=== PATIENT | male | born 1955 | race Caucasian/White ===

== ENCOUNTER 2020-02-12 18:06 | Emergency (ER) | payer SELFPAY ==
[~2020-02-12] VITALS: Ht 180.3 cm; Wt 83.9 kg
[2020-02-12 18:44] LABS: BASOPHILS ABSOLUTE AUTO 0.02 K/mm3 (0.00-0.23); BASOPHILS PERCENT AUTO 0 % (0-2); EOSINOPHILS ABSOLUTE AUTO 0.13 K/mm3 (0.00-0.68); EOSINOPHILS PERCENT AUTO 2 % (0-6); Hematocrit 45.3 % (37.0-53.0); IMMATURE GRAN ABSOLUTE AUTO 0.02 K/mm3 (0.00-0.10); IMMATURE GRAN PERCENT AUTO 0 % (0-1); LYMPHOCYTES ABSOLUTE AUTO 0.77 K/mm3 (0.84-5.20); LYMPHOCYTES PERCENT AUTO 12 % (21-46); MONOCYTES ABSOLUTE AUTO 0.54 K/mm3 (0.16-1.47); MONOCYTES PERCENT AUTO 9 % (4-13); Mean Corpuscular HGB 31.1 pg (26.0-34.0); Mean Corpuscular HGB Conc 33.1 g/dL (31.5-36.5); Mean Corpuscular Volume 94 fL (80-100); Mean Platelet Volume 9.5 fL (9.1-12.4); NEUTROPHILS PERCENT AUTO 77 % (41-73); Platelet Count 209 K/mm3 (150-400); RDW Coefficient Variation 13.2 % (11.7-14.2); RDW Standard Deviation 45.2 fL (35.1-46.3); Red Blood Cell Count 4.83 M/mm3 (4.30-5.90); White Blood Cell Count 6.38 K/mm3 (4.00-11.30)
[2020-02-12 19:06] LABS: Alanine Aminotransfer (ALT/SGP 21 U/L (12-78); Albumin, Blood 3.5 g/dL (3.4-5.0); Albumin/Globulin Ratio 1.1 (0.8-1.8); Alk Phos 136 U/L (50-136); Anion Gap 3 mmol/L (6-16); Aspartate Aminotrans (AST/SGOT 19 U/L (12-37); Bilirubin, Total 0.3 mg/dL (0.1-1.0); Blood Urea Nitrogen 15 mg/dL (8-24); Bun/Creatinine Ratio 15.6 (12.0-20.0); CO2, Blood 30 mmol/L (21-32); Calcium, Blood 8.4 mg/dL (8.5-10.1); Chloride, Blood 111 mmol/L (98-108); Creatinine, Blood 0.96 mg/dL (0.60-1.20); Ethanol (Alcohol), Blood, Med 71 mg/dL; Globulin, Blood 3.2 g/dL (2.2-4.0); Glomerular Filtration Rate >60 (60-); Glucose, Blood 86 mg/dL (70-99); Potassium, Blood 3.5 mmol/L (3.5-5.5); Sodium, Blood 144 mmol/L (136-145); Total Protein, Blood 6.7 g/dL (6.4-8.2)
[2020-02-12] MEDS ORDERED: Aspirin EC81 MG PO (20:11)
== END 2020-02-12 20:49 | disposition home or self-care (01) ==
LOC: ER 18:06
PROVIDERS: Emergency Medicine
DX: G45.9 Transient cerebral ischemic attack, unspecified (principal); F10.129 Alcohol abuse with intoxication, unspecified; Z79.82 Long term (current) use of aspirin
CPT/HCPCS: 70450; 80053; 85025; 93005; 93010; 99284-25; G0480

== ENCOUNTER → 2020-09-03 | Outpatient (CLI) | payer SELFPAY ==
[~2020-09-03] MED LIST: Aspirin EC81 MG PO
[2020-09-03 18:07] LABS: International Normalized Ratio 0.92
[2020-09-03 18:13] LABS: BASOPHILS ABSOLUTE AUTO 0.02 K/mm3 (0.00-0.23); BASOPHILS PERCENT AUTO 0 % (0-2); EOSINOPHILS ABSOLUTE AUTO 0.13 K/mm3 (0.00-0.68); EOSINOPHILS PERCENT AUTO 2 % (0-6); Hematocrit 46.9 % (37.0-53.0); Hemoglobin 15.8 g/dL (13.5-17.5); IMMATURE GRAN ABSOLUTE AUTO 0.02 K/mm3 (0.00-0.10); IMMATURE GRAN PERCENT AUTO 0 % (0-1); LYMPHOCYTES ABSOLUTE AUTO 1.38 K/mm3 (0.84-5.20); LYMPHOCYTES PERCENT AUTO 24 % (21-46); MONOCYTES ABSOLUTE AUTO 0.77 K/mm3 (0.16-1.47); MONOCYTES PERCENT AUTO 13 % (4-13); Mean Corpuscular HGB 31.3 pg (26.0-34.0); Mean Corpuscular HGB Conc 33.7 g/dL (31.5-36.5); Mean Corpuscular Volume 93 fL (80-100); Mean Platelet Volume 11.1 fL (9.1-12.4); NEUTROPHILS ABSOLUTE AUTO 3.53 K/mm3 (1.96-9.15); NEUTROPHILS PERCENT AUTO 60 % (41-73); Platelet Count 201 K/mm3 (150-400); RDW Coefficient Variation 13.7 % (11.7-14.2); RDW Standard Deviation 47.4 fL (35.1-46.3); Red Blood Cell Count 5.04 M/mm3 (4.30-5.90); White Blood Cell Count 5.85 K/mm3 (4.00-11.30)
[2020-09-03 18:25] LABS: Alanine Aminotransfer (ALT/SGP 33 U/L (12-78); Albumin, Blood 3.9 g/dL (3.4-5.0); Albumin/Globulin Ratio 1.1 (0.8-1.8); Alk Phos 148 U/L (50-136); Anion Gap 6 mmol/L (6-16); Aspartate Aminotrans (AST/SGOT 24 U/L (12-37); Bilirubin, Total 0.3 mg/dL (0.1-1.0); Blood Urea Nitrogen 21 mg/dL (8-24); Bun/Creatinine Ratio 25.3 (12.0-20.0); CHOL/HDL RATIO 2.4; CO2, Blood 27 mmol/L (21-32); Calcium, Blood 8.8 mg/dL (8.5-10.1); Chloride, Blood 109 mmol/L (98-108); Cholesterol 168 mg/dL (50-200); Creatinine, Blood 0.83 mg/dL (0.60-1.20); Globulin, Blood 3.7 g/dL (2.2-4.0); Glomerular Filtration Rate >60 (60-); Glucose, Blood 72 mg/dL (70-99); HDL Cholesterol 69 mg/dL (>39); LDL/HDL RATIO 1.1; Low Density Lipoprotein Chol 77 mg/dL (0-110); Potassium, Blood 4.1 mmol/L (3.5-5.5); Sodium, Blood 142 mmol/L (136-145); Total Protein, Blood 7.6 g/dL (6.4-8.2); Triglycerides 111 mg/dL (30-160); Very Low Density Lipoprot Chol 22 mg/dL (6-32)
== END ==
LOC: LAB SHORT 16:45
PROVIDERS: Nurse Practitioner Family
DX: Z00.00 Encounter for general adult medical examination without abnormal findings (principal); Z12.5 Encounter for screening for malignant neoplasm of prostate; E55.9 Vitamin D deficiency, unspecified; Z86.73 Personal history of transient ischemic attack (TIA), and cerebral infarction without residual deficits
CPT/HCPCS: 80053; 80061; 82306; 84443; 85025; 85610; G0103

== ENCOUNTER 2020-11-17 21:18 | Inpatient (IN) | payer MEDICARE ==
[~2020-11-17] VITALS: Ht 175.3 cm; Wt 76.7 kg
[2020-11-17 21:47] LABS: BASOPHILS ABSOLUTE AUTO 0.01 K/mm3 (0.00-0.23); BASOPHILS PERCENT AUTO 0 % (0-2); EOSINOPHILS ABSOLUTE AUTO 0.13 K/mm3 (0.00-0.68); EOSINOPHILS PERCENT AUTO 2 % (0-6); Hematocrit 40.6 % (37.0-53.0); Hemoglobin 13.9 g/dL (13.5-17.5); IMMATURE GRAN ABSOLUTE AUTO 0.03 K/mm3 (0.00-0.10); IMMATURE GRAN PERCENT AUTO 0 % (0-1); LYMPHOCYTES ABSOLUTE AUTO 1.01 K/mm3 (0.84-5.20); LYMPHOCYTES PERCENT AUTO 11 % (21-46); MONOCYTES ABSOLUTE AUTO 1.65 K/mm3 (0.16-1.47); MONOCYTES PERCENT AUTO 19 % (4-13); Mean Corpuscular HGB 31.7 pg (26.0-34.0); Mean Corpuscular HGB Conc 34.2 g/dL (31.5-36.5); Mean Corpuscular Volume 93 fL (80-100); Mean Platelet Volume 10.4 fL (9.1-12.4); NEUTROPHILS ABSOLUTE AUTO 6.04 K/mm3 (1.96-9.15); NEUTROPHILS PERCENT AUTO 68 % (41-73); Platelet Count 165 K/mm3 (150-400); RDW Coefficient Variation 13.2 % (11.7-14.2); RDW Standard Deviation 45.2 fL (35.1-46.3); Red Blood Cell Count 4.39 M/mm3 (4.30-5.90); White Blood Cell Count 8.87 K/mm3 (4.00-11.30)
[2020-11-17 22:00] LABS: Alanine Aminotransfer (ALT/SGP 51 U/L (12-78); Albumin, Blood 2.9 g/dL (3.4-5.0); Albumin/Globulin Ratio 0.8 (0.8-1.8); Alk Phos 94 U/L (50-136); Anion Gap 4 mmol/L (6-16); Aspartate Aminotrans (AST/SGOT 37 U/L (12-37); Bilirubin, Total 0.3 mg/dL (0.1-1.0); Blood Urea Nitrogen 20 mg/dL (8-24); Bun/Creatinine Ratio 22.9 (12.0-20.0); CO2, Blood 31 mmol/L (21-32); Calcium, Blood 8.5 mg/dL (8.5-10.1); Chloride, Blood 108 mmol/L (98-108); Creatinine, Blood 0.87 mg/dL (0.60-1.20); Globulin, Blood 3.5 g/dL (2.2-4.0); Glomerular Filtration Rate >60 (60-); Glucose, Blood 90 mg/dL (70-99); Potassium, Blood 3.9 mmol/L (3.5-5.5); Sodium, Blood 143 mmol/L (136-145); Total Protein, Blood 6.4 g/dL (6.4-8.2)
[2020-11-17 22:30] LABS: Prothrombin Time Results 10.8 Sec (9.7-11.5)
[2020-11-17 23:27] LABS: Ethanol (Alcohol), Blood, Med <3 mg/dL
[2020-11-18 00:36] LABS: SARS-Cov-2 (COVID-19) PCR, MMC NEGATIVE (NEGATIVE)
[2020-11-18 06:23] LABS: CHOL/HDL RATIO 3.9; Cholesterol 120 mg/dL (50-200); HDL Cholesterol 31 mg/dL (>39); LDL/HDL RATIO 2.4; Low Density Lipoprotein Chol 75 mg/dL (0-110); Triglycerides 71 mg/dL (30-160); Very Low Density Lipoprot Chol 14 mg/dL (6-32)
--- NOTE | 2020-11-18 18:38 | NUR ---
PATIENT A/OX3, UP WITH GB, FWW AND 1 ASSIST. TOLERATING DYSPHAGIA DIET, TAKES PILLS CRUSHED IN APPLESAUCE. ST/OT/PT WORKING WITH PATIENT. FALL PRECAUTIONS IN PLACE. SR ON TELE, DENIES ANY CP. LUNGS CLEAR/DIM, ON RA. PATIENT ATTEMPTED TO GET OOB UNASSISTED THIS EVANING AND WAS CLOSE TO FALLING. 2 STAFF MEMBERS WERE ABLE TO LOWER HIM SAFELY TO THE GROUND WITHOUT ANY INJURY. PT/OT HELPERS ON THE FLOOR ASSISTED PATIENT BACK TO BED. BED ALARM SET AND PATIENT REMINDED TO CALL FOR ASSISTANCE.
--- NOTE | 2020-11-19 03:31 | NUR ---
patient alert and oriented to person. confused to situation and time.bed alarm on due to multiple attempts of getting out of bed. extremely weak when standing. 2 person assitance out of bed. urinal at bedside, but has been mostly incontient. tolerating nectar thickend liquids well overnight. denies pain. denies nausea.
--- NOTE | 2020-11-19 06:43 | NUR ---
NOTIFIED BY TELE THAT PT HAD A 10 BEAT RUN OF VTACH. PT ASYMPTOMATIC. SR IN THE 70'S OTHERWISE. CALL MADE TO DR. LE. WAITING FOR CALL BACK. WILL NOTIFY DAY RN.
--- NOTE | 2020-11-19 16:49 | NUR ---
Shift Summary A/O, pleasant and cooperative. Difficultly communicating with staff d/t stroke and dysphasia. Consult called to Dr. Florence. Called and updated Emy () @ [phone] RE upcoming procedure (peg-tube placement) per Dr. Florence's request. Emy also provided an alternate number [phone] and will be awaiting Dr. Florence's call tomorrow prior to procedure. Patient had modified barium swallow study today (see results). Otherwise, no complaints of pain, nausea, vomiting, diarrhea. 2p max assist for transfer. Bed alarm on for safety. WCTM.
--- NOTE | 2020-11-19 18:32 | NUR ---
NS @ [address] MELISSA NUNN NO IV FLUIDS RUNNING AND PATIENT NPO. PATIENT C/O DEHYDRATION. T.O. FOR 1 BAG NS @ 75.
--- NOTE | 2020-11-20 04:26 | NUR ---
No acute changes in patient's condition overnight.seems oriented however, has expressive aphasia; no visible signs of any distress present. bed alarm on for safety. anticipate peg placement today.
--- NOTE | 2020-11-20 09:30 | NUR ---
PT PLEASANT COOP VERY DIFFICULT TO UNDERSTAND. BARELY TALKING. H/R REG, NO MURMER NOTED. PER TELE NSR 84 WITH PAC'S. LUNGS CLEAR, RESP EASY, UNLABORED. ON R.A. PENDING PEG TUBE THIS AM. BED IN LOW POSITION, CAMELIA LITE IN REACH, BED ALARM ON FOR SAFETY
--- NOTE | 2020-11-20 12:55 | NUR ---
TO PROCEDKURE AT 1255
--- NOTE | 2020-11-20 13:11 | NUR ---
HERNESTO FROM SURGERY CALLED. PT ON PLAVIX YEST. PER DR NEEDS TO BE OFF 5 DAYS. PT TO BE RETURNED TO ROOM.
--- NOTE | 2020-11-20 18:48 | NUR ---
PT NOT ABLE TO GET THE PEG TUBE PLACED TODAY. ORDERS WERE MADE FOR NG TUBE. PLACED BY ENAMEL DIPPER. VERIFIED BY DR MUNOZ OKAY TO USE. STARTED THIS NICHOLE AT PER PROTOCOL RATES. PT RESTING, HOB 30%. BED IN LOW POSITION, CALLLITE IN [facility], CALLS APPROP
--- NOTE | 2020-11-21 02:31 | NUR ---
TUBE FEEDING IS INCREASED TO 35ML. 0ML RESIDUAL. TOLERATING FEEDINGS FINE. NO COMPLAINTS OR ACUTE CONCERNS.
--- NOTE | 2020-11-21 04:05 | NUR ---
PATIENT HAS NEWLY INSERTED DOBHOFF FEEDING TUBE. PEG TUBE WAS ATTEMPTED AND UNABLE TO INSERT BC HE HAD RECENT PLAXIX. JEVITY 1.5 RUNNING AT 25ML/HR AND THEN INCREASED TO 35ML/HR AT 0200. 0ML RESIDUAL. TOLERATING WELL. NO SIGNIFICANT EVENTS OR OTHER CHANGES IN CONDITION OVERNIGHT.
[2020-11-21 07:08] LABS: Anion Gap 6 mmol/L (6-16); Blood Urea Nitrogen 27 mg/dL (8-24); CO2, Blood 26 mmol/L (21-32); Calcium, Blood 8.5 mg/dL (8.5-10.1); Chloride, Blood 111 mmol/L (98-108); Creatinine, Blood 0.75 mg/dL (0.60-1.20); Glomerular Filtration Rate >60 (60-); Glucose, Blood 132 mg/dL (70-99); Phosphorus, Blood 2.5 mg/dL (2.5-4.9); Potassium, Blood 3.7 mmol/L (3.5-5.5); Sodium, Blood 143 mmol/L (136-145)
--- NOTE | 2020-11-21 10:00 | NUR ---
pt pleasant today. able to make needs known. left side is weak. facial droop. daubhoff is functioning. adjusting rate to 45 . pt drew well. denies pain. h/r reg, no murmer noted. per tele nsr at 68-70. lungs clear, resp easy, unlabored. pt able to stand to urinate with 1 heavy asst. leans to left. but with fww is working. bed in low position, call lite in reach, calls approp
--- NOTE | 2020-11-21 19:51 | NUR ---
PT QUITE PLEASNT TODAY. NEW FEEDING BAGS PLACED THIS NICHOLE. PUMP CLEARED. NO NEW CONERNS NOTED. NG IN PLACE AND FEEDING IN PROGRESS. BED IN LOW POSITION, CALLLITE IN REACH, CALLS APPROP
--- NOTE | 2020-11-22 04:06 | NUR ---
NO ACUTE CHANGES IN CONDITION OR ANY SIGNIFICANT EVENTS NOTED OVERNIGHT. PATIENT IS ALERT AND ORIENTED X3. A WRITING BOARD AND MARKER WAS GIVEN TO HIM ON DAY SHIFT TO HELP HIM TO BE ABLE TO COMMUNICATE BETTER WITH THE STAFF. TUBE FEEDING IS JEVITY 1.5, INCREASED TO 55ML/HR AT 2200. THE GOAL RATE, 60ML/HR WILL BE ACHIEVED AT THE END OF THIS SHIFT IF HE IS TOLERATING WELL, WITH LIMITED RESIDUAL. RESIDUAL CHECKED AT 2200 AND WAS 15ML. RESIDUAL WAS RETURNED. 45ML OF FLUSH GIVEN Q1H VIA PUMP. DENIES PAIN. DENIES NAUSEA. DOBHOFF STILL INTACT, IN PROPER POSITION, AUSCALTED.
[2020-11-22 05:42] LABS: Anion Gap 5 mmol/L (6-16); Blood Urea Nitrogen 24 mg/dL (8-24); Bun/Creatinine Ratio 29.4 (12.0-20.0); CO2, Blood 28 mmol/L (21-32); Calcium, Blood 8.3 mg/dL (8.5-10.1); Chloride, Blood 110 mmol/L (98-108); Creatinine, Blood 0.82 mg/dL (0.60-1.20); Glomerular Filtration Rate >60 (60-); Glucose, Blood 132 mg/dL (70-99); Phosphorus, Blood 3.2 mg/dL (2.5-4.9); Potassium, Blood 3.8 mmol/L (3.5-5.5); Sodium, Blood 143 mmol/L (136-145)
--- NOTE | 2020-11-22 06:36 | NUR ---
PATIENT PULLED OUT DOBHOFF TUBE. TIP OF TUBE STILL IN NASAL. TUBE FEEDING WERE STOPPED. MEDICAL TECHNOLOGIST SHIVA CAME TO THE ROOM TO SEE IF WE COULD ADVANCE IT AND ORDER ANOTHER X RAY TO CONFIRM PLACEMENT. PATIENT IS REFUSING TO HAVE TUBE REPLACED. HE IS VERY AGITATED. HE DOES NOT WANT TUBE. WILL NOTIFY MD IN AM REGARDING THIS EVENT.
--- NOTE | 2020-11-22 13:30 | NUR ---
wanted to know where he was and where he is going, wrote on board UV and that he needed a peg tube, explained what necessary for peg tube and transfre, pt stated/indicated understanding and agreement, after all done he once again asked why he was here and rolled his eyes when reason riterated but indicated it was frusteration with the facts not a lack of understanding
--- NOTE | 2020-11-22 19:42 | NUR ---
iv wrapped well to protect from being pulled, call light in reach, still frusterated with asphasia, compliant, noc nurse will start clinamix when it arrives from pharmacy, gave order for regular clinamix 50, report shared with noc nurse
[2020-11-23 05:32] LABS: Anion Gap 4 mmol/L (6-16); Blood Urea Nitrogen 28 mg/dL (8-24); Bun/Creatinine Ratio 34.6 (12.0-20.0); CO2, Blood 26 mmol/L (21-32); Calcium, Blood 8.6 mg/dL (8.5-10.1); Chloride, Blood 113 mmol/L (98-108); Creatinine, Blood 0.81 mg/dL (0.60-1.20); Glomerular Filtration Rate >60 (60-); Glucose, Blood 109 mg/dL (70-99); Phosphorus, Blood 3.1 mg/dL (2.5-4.9); Sodium, Blood 143 mmol/L (136-145)
--- NOTE | 2020-11-23 06:53 | NUR ---
PATIENT EVERY AGITATED AND RESTLESS OVERNIGHT. WANTED TO WALK AROUND AND LEAVE TO GO SEE HIS FRIENDS. COMPLAINS OF BEING THIRSTY. NO ACUTE CHANGES IN CONDITION NOTED
--- NOTE | 2020-11-23 17:01 | NUR ---
PT IS ALERT. HAS SPEECH ASPHASIA DIFFICULT TO UNDERSTAND HAS A WHISPERED VOICE. HOWEVER THE PT SEEMS ABLE TO EXPRESS MOST OF HIS NEEDS. PT APPEARS TO BE BREATHING EASILY ON RA AT THIS TIME. THE PT WORKED WITH BOTH THE PHYSOICAL AND OCCUPATIONAL THERAPIST TODAY. PLAN IS FOR THE PT TO HAVE A PEG TUBE PLACEMENT ON . CALL LIGHT IN REACH, WILL CONTINUE TO MONITOR AND ASSESS FOR CHANGES
--- NOTE | 2020-11-24 05:25 | NUR ---
SHIFT SUMMARY A/O 2-3, AGITATED T/O NIGHT D/T BEING NPO. ORAL SWABS OFFERED. PT PULLED IV, NEW IV PLACED RUNNING CLINIMIX. L SIDED WEAKNESS WITH EXPRESSIVE APHASIA NOTED. VSS, NO ACUTE CHANGES AT THIS TIME. BED IN LOWEST POSITION WITH CALL LIGHT IN REACH. WILL CONTINUE TO MONITOR AND REPORT TO ONCOMING RN.
--- NOTE | 2020-11-24 13:42 | NUR ---
Patient has been A/OX3 TO PERSON, PLACE AND DATE. The patient does have trouble communicating due to stroke and has left sided weakness. The patient has been NPO this AM due to aspiration risk and he has only recieved water using a mouth swab. He was a 1 prsn assist to [facility] using [facility]. He is able to follow commands. The patient was informed that he was moving to the surgery center for continued care and he gave understanding that he was moving. .The Patient was transffered to [facility]. Reprot was given to staff and they transported the patient off the floor in wheelchair.
[2020-11-24 21:03] LABS: SARS-Cov-2 (COVID-19) PCR, MMC NEGATIVE (NEGATIVE)
--- NOTE | 2020-11-24 21:36 | NUR ---
PATIENT NOTED TO HAVE FEVER OF 100.3. ADDITIONAL ORDERS RECIVED. PATIENT GIVEN TYLENOL AND COVID TEST OBTAINED.
--- NOTE | 2020-11-25 05:12 | NUR ---
PATIENT SLEPT OFF AND ON THROUGHOUT SHIFT. CONTINUALLY ASKS FOR WATER. GIVEN WET SWABS TO MOISTEN MOUTH. VOICE SEEMS A LITTLE STRONGER THIS MORNING.
[2020-11-25 06:50] LABS: Magnesium, Blood 2.4 mg/dL (1.6-2.4); Phosphorus, Blood 3.4 mg/dL (2.5-4.9)
--- NOTE | 2020-11-25 14:47 | NUR ---
11/25/20 1447 Krista Meyer History, Chart, Medications and Allergies reviewed before start of procedure. MONITOR INTACT WITH CONTINUOUS PULSE OXIMETRY AND INTERMITTENT BP.
--- NOTE | 2020-11-25 16:04 | NUR ---
Spoke with Krista Meyer following procedure for attempted PEG tube placement. Informed of pt vitals 104/70 80 NSR 100.8F. Placement unsuccesful. Krista advises assemsment by Dr. Herrera this evening for possible placement tomorrow under fluoroscopy. Informed about historical IV site in left AC is errythematous and Dr. Calderon expresses concern for possible cellulitis. Call placed to Dr. Cruz regarding Left arm to request orders as needed. Dr. Cruz would like to hold off on antibiotics at this time and move forward with NSAIDS and Ultrasound examination of site. We will continue to monitor site and temperature closely for changes.
--- NOTE | 2020-11-25 19:24 | NUR ---
PATIENT NOTED TO HAVE REDNESS AND PAIN TO LEFT HAND IV SITE. IV ATTEMPTED TIMES TWO TO RIGHT ARM, UNSUCCESSFUL. DR. VILLALBA MOTIFIED. POWER GLIDE ORDERED. ICU CHARGE NURSE NOTIFIED.
--- NOTE | 2020-11-25 19:53 | NUR ---
PATIENT OFF TO CT SCAN WITH NEW IV IN PLACE.
--- NOTE | 2020-11-26 05:14 | NUR ---
PATIENT CONTINUED TO BE FEBRILE THROUGHOUT NIGHT. LEFT ARM RED AND WARM. UNCHANGED. CONTINUES TO ASK FOR PO INTAKE. URINE VERY DARK AND STRONG SMELLING.
[2020-11-26 05:24] LABS: BASOPHILS ABSOLUTE AUTO 0.04 K/mm3 (0.00-0.23); BASOPHILS PERCENT AUTO 0 % (0-2); EOSINOPHILS ABSOLUTE AUTO 0.04 K/mm3 (0.00-0.68); EOSINOPHILS PERCENT AUTO 0 % (0-6); Hematocrit 43.9 % (37.0-53.0); Hemoglobin 15.1 g/dL (13.5-17.5); IMMATURE GRAN ABSOLUTE AUTO 0.05 K/mm3 (0.00-0.10); IMMATURE GRAN PERCENT AUTO 1 % (0-1); LYMPHOCYTES ABSOLUTE AUTO 0.65 K/mm3 (0.84-5.20); LYMPHOCYTES PERCENT AUTO 6 % (21-46); MONOCYTES PERCENT AUTO 11 % (4-13); Mean Corpuscular HGB 31.5 pg (26.0-34.0); Mean Corpuscular HGB Conc 34.4 g/dL (31.5-36.5); Mean Corpuscular Volume 92 fL (80-100); Mean Platelet Volume 11.3 fL (9.1-12.4); NEUTROPHILS ABSOLUTE AUTO 8.98 K/mm3 (1.96-9.15); NEUTROPHILS PERCENT AUTO 82 % (41-73); Platelet Count 229 K/mm3 (150-400); RDW Coefficient Variation 13.2 % (11.7-14.2); RDW Standard Deviation 45.1 fL (35.1-46.3); Red Blood Cell Count 4.79 M/mm3 (4.30-5.90); White Blood Cell Count 10.96 K/mm3 (4.00-11.30)
[2020-11-26 05:47] LABS: Magnesium, Blood 2.6 mg/dL (1.6-2.4); Phosphorus, Blood 3.7 mg/dL (2.5-4.9)
--- NOTE | 2020-11-26 10:35 | NUR ---
PT PICKED UP BY [facility] TEAM FOR GTUBE PLACEMENT PROCEDURE. UPDATED AND SHE TALKED WITH PT BEFORE PROCEDURE.
--- NOTE | 2020-11-26 12:34 | NUR ---
RECEIVED PT FROM [facility], POST PROCEDURE. VSS. NO COMPLAINTS OF PAIN. CONNECTED GTUBE TO CONTINUOUS LOW SUCTION PER LISA SHERIFF AT [facility]. WILL CONTINUE TO MONITOR FOR CHANGES AND PAIN.
--- NOTE | 2020-11-26 12:48 | NUR ---
DRAINAGE BAG CONNECTED TO GTUBE TO DRAIN VIA GRAVITY PER LISA SHERIFF INSTEAD OF LOW CONTINUOUS SUCTION.
--- NOTE | 2020-11-26 17:56 | NUR ---
PT RESTING IN BED COMFORTABLY. PT STATES NO PAIN AT THIS TIME. VSS THROUGHOUT SHIFT. AFEBRILE AT 99.3 UPON LAST VS CHECK. PT UNBUNDLED AND WILL RECHECK TEMP. NEW ABX ORDER STARTED TODAY. PT STATES NO PAIN FROM GTUBE PLACEMENT PROCEDURE. NO COMPLAINTS OF NAUSEA. DRAINAGE BAG CONNECTED TO GTUBE FOR DECOMPRESSION VIA GRAVITY, OK PER LISA SHERIFF IN IR TO USE GRAVITY INSTEAD OF INTERMITTENT LOW SUCTION PTS HOSPITAL ROOM DOES NOT HAVE INTERMITTENT SUCTION CAPABILITIES. PT CONTINUALLY ASKING TO DRINK SOMETHING. MOIST MOUTH SWABS PROVIDED WITH SOME RELIEF. PT WAS UP IN RECLINER FOR 1HR TODAY AND TOLERATED WELL. PT WORKED WITH ST TODAY AND WAS GIVEN NEW EXERCISES TO FOLLOW. PTS CALLED TO CHECK IN, PT WAS RESTING AND DID NOT WANT TO WAKE HIM. PT HAS MOMENTS OF AGITATION WHEN HE IS HAVING DIFFICULTY SPEAKING OR FORMING WORDS. THIS RN OFFERED WORDS OF ENCOURAGEMENT AND POSITIVITY. PLAN FOR FEEDINGS TO START TOMORROW. OK TO GIVE MEDS PER ' NOTE, CRUSHED FINELY AND FLUSHED. WILL CONTINUE TO MONITOR AND WILL GIVE REPORT TO ONCOMING PROCUREMENT COST COORDINATOR RN.
--- NOTE | 2020-11-27 00:48 | NUR ---
PATIENT SLEEPING. IV CLIMIX WAS COMPLETE WAS THE IV CEFAZOLIN. SALINE FLUSH AND PIGTAIL WAS CAPPED. PATIENT SLEPT THROUGHOUT THIS WHOLE PROCESS. APPEARS COMFORTABLE.
--- NOTE | 2020-11-27 06:10 | NUR ---
OMEPRAZOLE NOT GIVEN SINCE IT IS TOO EARLY TO ACCESS PEG TUBE. ORDER STATES TO START USE 24 HOURS AFTER INSERTION. PATIENT IS NPO DUE TO ASPIRATION RISK
[2020-11-27 06:11] LABS: Hematocrit 44.5 % (37.0-53.0); Mean Corpuscular HGB Conc 33.7 g/dL (31.5-36.5); Mean Corpuscular Volume 92 fL (80-100); Mean Platelet Volume 11.2 fL (9.1-12.4); Platelet Count 219 K/mm3 (150-400); RDW Coefficient Variation 13.2 % (11.7-14.2); RDW Standard Deviation 45.1 fL (35.1-46.3); Red Blood Cell Count 4.84 M/mm3 (4.30-5.90); White Blood Cell Count 7.42 K/mm3 (4.00-11.30)
--- NOTE | 2020-11-27 06:27 | NUR ---
PATIENT HAS BEEN REQUESTING ORAL SWAB REPEATEDLY THROUGHOUT THE NIGHT. PATIENT VERY UPSET AND DEMANDING THAT WE GIVE HIM THE CUP SO HE CAN DRINK. IT IS EXPLAINED TO THE PATIENT WHY HE IS NPO NUMEROUS TIMES AND ATTEMPTS TO REASSURE THE PATIENT ARE MADE. HE IS VISABLY UPSET AND ONCE AGAIN REASSURRED.
[2020-11-27 06:32] LABS: Albumin, Blood 2.5 g/dL (3.4-5.0); Anion Gap 3 mmol/L (6-16); Blood Urea Nitrogen 32 mg/dL (8-24); Bun/Creatinine Ratio 36.7 (12.0-20.0); CO2, Blood 29 mmol/L (21-32); Calcium, Blood 8.8 mg/dL (8.5-10.1); Chloride, Blood 111 mmol/L (98-108); Creatinine, Blood 0.87 mg/dL (0.60-1.20); Glomerular Filtration Rate >60 (60-); Glucose, Blood 95 mg/dL (70-99); Magnesium, Blood 2.5 mg/dL (1.6-2.4); Phosphorus, Blood 2.9 mg/dL (2.5-4.9); Potassium, Blood 3.8 mmol/L (3.5-5.5); Sodium, Blood 143 mmol/L (136-145)
--- NOTE | 2020-11-27 08:50 | NUR ---
ASSUMED CARE FOR PT AT 0700. PT RESTING IN BED. GIVEN BED BATH AND MEDICATIONS. PT CONTINUES TO EXPRESS FRUSTRATION THAT HE CANNOT DRINK. THIS RN PROVIDED PT WITH MOIST MOUTH SWABS WITH SOME RELIEF BUT PT STILL WOULD LIKE TO DRINK. THIS RN EXPLAINED THE DANGERS OF DRINKING ORALLY RIGHT NOW. PT EXPRESSED UNDERSTANDING BUT STILL FRUSTRATION. PT TOLERATED MEDICATIONS VIA GTUBE WITH NO PAIN OR NAUSEA. PLAN FOR PT/OT/ST TODAY AND TO START FEEDINGS VIA GTUBE. WILL CONTINUE TO MONITOR FOR CHANGES.
--- NOTE | 2020-11-27 13:56 | NUR ---
Spiritual care visit conducted. Patient is very tearful and talks about the devastation of having a stroke, his spouses ritchie with cancer and the loneliness of his situation. I provide music therapy, therapeutic listening and prayer. Patient shows signs of an elevated mood and voices apreciation for the visit. I will continue to remain available to patient and family.
--- NOTE | 2020-11-27 18:20 | NUR ---
PT RESTING IN BED COMFORTABLY. PT CALLS APPROPRIATELY FOR NEEDS. PT CONSISTENTLY ASKING TO DRINK WATER AND EAT ICE CREAM. THIS RN EDUCATED PT ON RISKS OF HAVING ORAL INTAKE RIGHT NOW. PT EXPRESSES UNDERSTANDING BUT ALSO FRUSTRATION. PT STARTED ON GTUBE FEEDINGS TODAY WITH 60ML FLUSH BEFORE AND AFTER FEEDINGS WITH 200ML FLUSH OF WATER IN BETWEEN FEEDS. PT TOLERATED 1ST FEED OF 120ML WITH 1ML RESIDUAL. 200ML FLUSH OF WATER IN BETWEEN FEEDS, TOLERATED WELL. PT TOLERATED 2ND FEEDING OF 180ML. NO COMPLAINTS OF PAIN OR NAUSEA. PT WORKED WITH ST/OT/PT TODAY. PT WAS UP TO RECLINER FOR ABOUT 2HRS TODAY AND TOLERATED THIS WELL. THIS RN CALLED PTS (FIDE) TO GIVE HER AN UPDATE. PT ALSO SPOKE WITH OVER THE PHONE. PT CONTINUES TO HAVE FRUSTRATION OVER NOT BEING ABLE TO COMMUNICATE EFFECTIVELY. NEW ORDERS FOR BUSPAR AND CELEXA FOR INCREASED SIGNS OF ANXIETY AND DEPRESSION. PT IN AGREEMENT WITH TAKING THESE MEDICATIONS. WILL CONTINUE TO MONITOR FOR CHANGES AND GIVE REPORT TO ONCOMING SECURITY SUPERVISOR RN.
--- NOTE | 2020-11-28 04:52 | NUR ---
PT. SLEPT COMFORTABLY MOST OF NIGHT. NO CO PAIN OR DISCOMFORT. LEFT AC STILL REDDENED. RIGHT AC IV INFUSING WITHOUT PROBLEMS. VOIDS PER URINAL. ABLE TO VOCALIZE SOME, USUALLY IN A WHISPER BUT OCCASIONALLY LOUDER. IS ABLE TO ASSIST WITH TURNING AND URINAL.
[2020-11-28 06:10] LABS: Magnesium, Blood 2.2 mg/dL (1.6-2.4)
[2020-11-28 06:11] LABS: Anion Gap 3 mmol/L (6-16); Blood Urea Nitrogen 30 mg/dL (8-24); Bun/Creatinine Ratio 40.3 (12.0-20.0); CO2, Blood 28 mmol/L (21-32); Calcium, Blood 8.1 mg/dL (8.5-10.1); Chloride, Blood 110 mmol/L (98-108); Creatinine, Blood 0.75 mg/dL (0.60-1.20); Glomerular Filtration Rate >60 (60-); Glucose, Blood 114 mg/dL (70-99); Phosphorus, Blood 2.8 mg/dL (2.5-4.9); Potassium, Blood 3.9 mmol/L (3.5-5.5); Sodium, Blood 141 mmol/L (136-145)
--- NOTE | 2020-11-28 18:04 | NUR ---
PT C/O LEFT SIDED NECK PAIN. I GAVE HIM A NECK PILLOW THAT HE WAS ABLE TO PUT ON HIMSELF. HE ASKED FOR TYLENOL. RN NOTIFIED.
--- NOTE | 2020-11-28 18:48 | NUR ---
Pt tolerated tube feedings well today. Increased to goal rate of 360 bolus TF at dinner. Clinimex discontinued this AM per order. Q6 hr blood glucose checks have been stable. Pt worked with PT today, up in chair for afternoon. 1PA with gait belt. Weakness to left side slightly improving per patient. Ataxia present. NPO- oral care as needed. meds through PEG tube. IV abx discontinued per MD, starting Keflex tonight. Pt c/o GUPTA, medicated for pain with prn analgesics per order. Pt's updated via phone throughout day.
--- NOTE | 2020-11-28 22:27 | NUR ---
PT. ASSESSED. ALERT COOPERATIVE. VOICE WHISPER AND DIFFICULT TO DETERMINE ORIENTATION. ASSESSMENT WNL. GTUBE INFUSING REMAINDER OF PM JEVITY THEN FLUSHED WITH 200CC WATER. MEDS GIVEN 2100 VIA TUBE AND FLUSHED WITH 60CC WATER. FLUSHES EASILY. TOLERATED WELL. NO CO PAIN OR DISCOMFORT. MOM GIVEN FOR NO BM.
--- NOTE | 2020-11-29 05:25 | NUR ---
PT. HAS BEEN RESTING VERY WELL MOST OF THE MICROBIOLOGICAL LAB TECHNICIAN. ALERT AND COOPERATIVE WHILE AWAKE. VOICE STILL MOSTLY A LOUD WHISPER. ABLE TO COMMUNICATE HIS NEEDS WELL. VSS. MN CBG 126. ASSESSMENT WNL. SEVERAL CLEAR YELLOW VOIDS PER URINAL. ORAL CARE DONE SEVERAL TIMES AT PT. REQUEST. PEG TUBE FLUSHED BEFORE AND AFTER MEDS. FLUSHES EASILY WITH WATER. MOM GIVEN AT HS. NO RESULTING BM YET. R AC SALINE LOCK FLUSHES WELL. L AC STILL REDDENED FROM PREVIOUS IV INFILTRATION BUT IMPROVING. NO CO PAIN, SOB OR DISCOMFORT.
--- NOTE | 2020-11-29 10:41 | NUR ---
ASSUMED CARE FOR PT AT 0700. PT RESTING IN BED RIGHT NOW. MORNING GTUBE FEEDING AND FLUSH TOLERATED WELL. PTS COMING TO VISIT PATIENT. PT APPEARS CONTENT ABOUT THIS. ROUNDED ON PT THIS MORNING. NO NEW ORDERS, PLAN FOR SNF PLACEMENT. WILL CONTINUE TO MONITOR FOR CHANGES.
--- NOTE | 2020-11-29 18:04 | NUR ---
PT RESTING IN BED CURRENTLY. NO COMPLAINTS OF PAIN OR NAUSEA THIS SHIFT. PT UP TO BATHROOM TODAY WITH MODERATE ASSISTANCE. PT TOLERATED ALL FEEDINGS AND WATER FLUSHES. PRN SUPPOSITORY GIVEN FOR NO BM AFTER MILK OF MAGNESIA. PT HAD RESULTS. PTS CAME TO VISIT PATIENT TODAY, WHICH THEY BOTH VOCALIZED TO THIS RN THEIR APPRECIATION. UPDATED WITH PLAN. PT APPEARS TO BE GAINING STRENGTH AND MOBILITY WITH TRANSFERS. DR. RING WROTE ORDERS FOR DISCHARGE TO SNF, THIS RN RECEIVED PHONE NUMBER FOR COLORER COORDINATOR FOR MICHEL AND LEFT MESSAGE TO SEE IF THE SNF TRANSFER COULD HAPPEN TODAY, NO CALL BACK. WILL GIVE REPORT TO ONCOMING ASTROBIOLOGIST RN AND HAVE DAY SHIFT RN FOLLOW UP WITH CARE MANAGEMENT TOMORROW.
--- NOTE | 2020-11-29 21:09 | NUR ---
PT LYING COMFORTABLY IN BED WITH HEAD ELEVATED. PT DENIES PAIN OR NAUSEA. ORAL CARE PROVIDED, PM MEDICATIONS GIVEN THROUGH HIS G-TUBE, SITE WNL, DRESSING INTACT. LEFT ARM AC AREA REDDENDED,ABX GIVEN FOR PHLEBITIS/CELLULITIS, RIGHT ARM IV SITE WNL DRESSING CHANGED. BED IN LOW LOCK POSITION,SIDE RAILS UP,CALL LIGHT WITHIN REACH. WILL CONTINUE TO MONITOR.
--- NOTE | 2020-11-30 06:39 | NUR ---
PT CHEM-BG @ [id number] 105. PT BACK IN BED AFTER ASSISTED SHOWER. PT IN GOOD SPIRIT, TRYING TO USE HIS LEFT HAND MORE. ASSERTING INDEPENDENCE WITH PERSONAL CARE. HE COMBED HIS HAIR, DID HIS OWN ORAL CARE. THE NIGHT WAS UNEVENTFUL.WILL REPORT TO DAY SHIFT RN.
--- NOTE | 2020-11-30 09:17 | NUR ---
Assumed care of patient. Safety checks done. Pt is resting in bed awake, alert, oriented. Denies pain/discomfort at this time. Plan for discharge to IRU today. Updated , isrrael on phone.
--- NOTE | 2020-11-30 10:38 | NUR ---
Spiritual care visit conducted. Patient is lying in bed and alert. Patient speaks at a volume level of a whisper so communication is strained. Patient talks about his hopes for improvement as he goes to a SNF. Patient has seen some increases already and is confident he can make some gains with more ST, OT and PT help. He shares about the struggle his is having and how the stroke has impacted every area of his life. I provide therapeutic listening, companionship, encouragement and prayer. Patient responds well and shows signs of increased hope. I will continue to remain available to patient and family.
[2020-11-30 11:01] LABS: SARS-Cov-2 (COVID-19) PCR, MMC NEGATIVE (NEGATIVE)
[2020-11-30] MEDS ORDERED: OMEP20ER PO (13:03)
[2020-11-30] MEDS ORDERED: BUSP5 PO (13:03)
[2020-11-30] MEDS ORDERED: CITA20 PO (13:04)
[2020-11-30] MEDS ORDERED: CEPH500 PO (13:04)
--- NOTE | 2020-11-30 15:29 | NUR ---
DISCHARGE NOTE: SAFE HAND OFF REPORT CALLED TO [facility]- REPORT RECEIVED BY LISA COURTNEY. PT DISCHARGED VIA W/C WITH [facility] WITH ALL PERSONAL BELONGINGS IN POCESSION. PT'S UPDATED ON PHONE.
== END 2020-11-30 14:31 | DRG 65 ==
LOC: ER 21:18 → ORSCIP 23:30 → ERHOLD 23:30 → MEDS 23:30 → ENPENDDIS 11-19 18:37 → MEDS 11-23 10:47 → ORSCIP 11-24 12:16
PROVIDERS: Family Medicine; Internal Medicine; Student in an Organized Health Care Education/Training Program; ADMIT Internal Medicine
PROC: 0DJ08ZZ Inspection of Upper Intestinal Tract, Via Natural or Artificial Opening Endoscopic (ICD-10-PCS; 2020-11-25)
PROC: 0DH63UZ Insertion of Feeding Device into Stomach, Percutaneous Approach (ICD-10-PCS; principal; 2020-11-26)
PROC: BD12ZZZ Fluoroscopy of Stomach (ICD-10-PCS; 2020-11-26)
DX: I63.9 Cerebral infarction, unspecified (principal); G81.94 Hemiplegia, unspecified affecting left nondominant side; L03.319 Cellulitis of trunk, unspecified; R29.810 Facial weakness; Z20.822 Contact with and (suspected) exposure to COVID-19; Z66 Do not resuscitate; R47.02 Dysphasia; R13.10 Dysphagia, unspecified; R29.705 NIHSS score 5; I10 Essential (primary) hypertension; F03.90 Unspecified dementia, unspecified severity, without behavioral disturbance, psychotic disturbance, mood disturbance, and anxiety; F17.290 Nicotine dependence, other tobacco product, uncomplicated; Z88.0 Allergy status to penicillin; Z79.82 Long term (current) use of aspirin; Z86.73 Personal history of transient ischemic attack (TIA), and cerebral infarction without residual deficits
CPT/HCPCS: 36415; 49440; 70450; 70496; 70498; 71045; 74177; 74230; 76937; 80048; 80053; 80061; 80069; 82947; 83735; 84100; 84443; 85025; 85027; 85610; 92507; 92523; 92526; 92610; 92611; 93005; 93010; 93306; 93971; 97110; 97112; 97116; 97162; 97165; 97530; 97535; 99152; 99153; 99285-25; A9270; C1769; C1887; G0480; J0690; J0696; J1610; J1650; J1885; J2001; J2250; J2704; J3010; J7030; J7040; J7120; Q9967; U0004

== ENCOUNTER 2020-12-12 04:10 | Emergency (ER) | payer MEDICARE ==
[~2020-12-12] VITALS: Ht 195.6 cm; Wt 81.7 kg
[~2020-12-12 04:10] MED LIST changes: +BUSP5 PO; +CEPH500 PO; +CITA20 PO; +OMEP20ER PO
== END 2020-12-12 06:09 | disposition home or self-care (01) ==
LOC: ER 04:10
DX: Z00.8 Encounter for other general examination (principal); F03.90 Unspecified dementia, unspecified severity, without behavioral disturbance, psychotic disturbance, mood disturbance, and anxiety; F17.210 Nicotine dependence, cigarettes, uncomplicated; Z88.0 Allergy status to penicillin; Z86.73 Personal history of transient ischemic attack (TIA), and cerebral infarction without residual deficits
CPT/HCPCS: 99283

== ENCOUNTER 2021-07-01 11:29 | Inpatient (IN) | payer MEDICARE, OTHER ==
[~2021-07-01] VITALS: Ht 182.9 cm; Wt 84.4 kg
[2021-07-01 14:21] LABS: Hematocrit 37.7 % (37.0-53.0); Mean Corpuscular HGB 31.8 pg (26.0-34.0); Mean Corpuscular HGB Conc 34.5 g/dL (31.5-36.5); Mean Corpuscular Volume 92 fL (80-100); Mean Platelet Volume 10.4 fL (9.1-12.4); Platelet Count 146 K/mm3 (150-400); RDW Standard Deviation 47.8 fL (35.1-46.3); Red Blood Cell Count 4.09 M/mm3 (4.30-5.90); White Blood Cell Count 6.43 K/mm3 (4.00-11.30)
[2021-07-01 14:47] LABS: Alanine Aminotransfer (ALT/SGP 29 U/L (12-78); Albumin, Blood 3.2 g/dL (3.4-5.0); Albumin/Globulin Ratio 1.1 (0.8-1.8); Alk Phos 112 U/L (50-136); Anion Gap 7 mmol/L (6-16); Aspartate Aminotrans (AST/SGOT 22 U/L (12-37); Bilirubin, Total 0.9 mg/dL (0.1-1.0); Blood Urea Nitrogen 19 mg/dL (8-24); Bun/Creatinine Ratio 26.8 (12.0-20.0); CO2, Blood 25 mmol/L (21-32); Calcium, Blood 8.3 mg/dL (8.5-10.1); Chloride, Blood 112 mmol/L (98-108); Creatinine, Blood 0.71 mg/dL (0.60-1.20); Globulin, Blood 2.9 g/dL (2.2-4.0); Glomerular Filtration Rate >60 (60-); Glucose, Blood 106 mg/dL (70-99); Potassium, Blood 3.7 mmol/L (3.5-5.5); Sodium, Blood 144 mmol/L (136-145); Total Protein, Blood 6.1 g/dL (6.4-8.2)
--- NOTE | 2021-07-01 15:25 | NUR ---
ARRIVED TO UNIT AT 1500. REPORTS MINIMAL PAIN TO R HIP AT THIS TIME. NO BRUISING OR DISCOLORATION PRESENT. NO EXTERNAL ROTATION PRESENT, WIGGLES TOES & DENIES N/T. DENIES N/V. VSS ON RA. DUNHAM CATH PRESENT.
--- NOTE | 2021-07-01 18:13 | NUR ---
SHIFT SUMMARY NO ACUTE CHANGES SINCE ARRIVAL TO UNIT. CONFUSED AT TIMES AND WANTS TO GO HOME, DOESNT UNDERSTAND WHY HE HAS TO STAY HERE IF HIS SURGERY ISNT UNTIL TOMORROW, UNDERSTAND HE HAS BROKEN HIP THOUGH. BED ALARM ON. TO BE NPO AT MIDNIGHT FOR SURGERY TOMORROW. DUNHAM IN PLACE, TELE IN PLACE WILL REPORT TO ONCOMING RN.
[2021-07-02 09:52] LABS: Influenza A, PCR NEGATIVE (NEGATIVE); Influenza B, PCR NEGATIVE (NEGATIVE); Resp Syncytial Virus, PCR NEGATIVE (NEGATIVE); SARS-Cov-2 (COVID-19) PCR, MMC NEGATIVE (NEGATIVE)
--- NOTE | 2021-07-02 11:04 | NUR ---
PATIENT JUST LEFT FOR OR.
--- NOTE | 2021-07-02 11:11 | NUR ---
PT TO SDS BY BED WITH MULT ASSIST. History, Chart, Medications and Allergies reviewed before start of procedure. LUNGS WITH EXPIRATORY COARSE SOUND, WILL DISCUSS WITH ANESTHESIA. Patient confirms NPO status and agrees with scheduled surgery. Pre-Op teaching done. Pt verbalizes understanding.
--- NOTE | 2021-07-02 12:04 | NUR ---
PT BEEN GIVEN BREATHING TX PER ANESTHESIA. PT REPORTS HAVING HIS PLAVIX YESTERDAY MORNING. DISCUSSED WITH LICENSED SOCIAL WORKER AND ANESTHESIA. WILL DISCUSS WITH DR VIOLETTE CAT. PT BEEN ASSISTED WITH ADL'S PRN.
--- NOTE | 2021-07-02 12:08 | NUR ---
DISCUSSED [address] CAT WHO REPORTED WE ARE STILL WITHIN 24 HOURS OF HER SIGNING THE PAPERWORK. DISCUSSED PT REPORTING HE HAD PLAVIX YESTERDAY MORNING.
--- NOTE | 2021-07-02 14:29 | NUR ---
PATIENT JUST ARRIVED FROM PACU [facility] 07/02/21 AT 1415. POD 0 RIGHT HIP NAILING PATIENT IS AWAKE AND ALERT. HE IS ABLE TO ANSWER QUESTIONS APPROPRIATELY. VS ARE WNL AND IS ON 2L NC WITH >90% OXYGEN SATS. PATIENT DENIES PAIN AT THIS TIME. RIGHT HIP HAS GAUZE AND FOAM TAPE THAT IS C/D/I. PEDAL PULSES ARE STRONG. CONDOM CATH IS IN PLACE WITH DARK COLORED URINE. PATIENT IS LAYING IN BED. CALL LIGHT WITHIN REACH.
[2021-07-03 04:16] LABS: BASOPHILS PERCENT AUTO 0 % (0-2); EOSINOPHILS ABSOLUTE AUTO 0.02 K/mm3 (0.00-0.68); EOSINOPHILS PERCENT AUTO 0 % (0-6); Hematocrit 35.8 % (37.0-53.0); Hemoglobin 12.2 g/dL (13.5-17.5); IMMATURE GRAN ABSOLUTE AUTO 0.03 K/mm3 (0.00-0.10); IMMATURE GRAN PERCENT AUTO 0 % (0-1); LYMPHOCYTES ABSOLUTE AUTO 0.84 K/mm3 (0.84-5.20); LYMPHOCYTES PERCENT AUTO 9 % (21-46); MONOCYTES ABSOLUTE AUTO 1.52 K/mm3 (0.16-1.47); MONOCYTES PERCENT AUTO 17 % (4-13); Mean Corpuscular HGB 31.9 pg (26.0-34.0); Mean Corpuscular HGB Conc 34.1 g/dL (31.5-36.5); Mean Corpuscular Volume 94 fL (80-100); Mean Platelet Volume 10.4 fL (9.1-12.4); NEUTROPHILS ABSOLUTE AUTO 6.66 K/mm3 (1.96-9.15); NEUTROPHILS PERCENT AUTO 73 % (41-73); Platelet Count 144 K/mm3 (150-400); RDW Coefficient Variation 13.9 % (11.7-14.2); RDW Standard Deviation 47.8 fL (35.1-46.3); Red Blood Cell Count 3.83 M/mm3 (4.30-5.90); White Blood Cell Count 9.07 K/mm3 (4.00-11.30)
--- NOTE | 2021-07-03 04:42 | NUR ---
SHIFT SUMMARY A/O 2-3. POD1 R HIP NAILING, DRESSINGS X2 C/D/I. DUNHAM DRAINING, DARK URINE TO GRAVITY. NO REPORTS OF PAIN THROUGHOUT THE SHIFT. VITAL SIGNS STABLE. TOLERATING PO INTAKE. COOPERATIVE AND PLEASANT. WILL CONTINUE TO MONITOR AND REPORT TO ONCOMING RN.
[2021-07-03 04:49] LABS: Anion Gap 5 mmol/L (6-16); Blood Urea Nitrogen 23 mg/dL (8-24); Bun/Creatinine Ratio 26.1 (12.0-20.0); CO2, Blood 26 mmol/L (21-32); Calcium, Blood 8.4 mg/dL (8.5-10.1); Chloride, Blood 108 mmol/L (98-108); Creatinine, Blood 0.88 mg/dL (0.60-1.20); Glomerular Filtration Rate >60 (60-); Glucose, Blood 117 mg/dL (70-99); Phosphorus, Blood 3.8 mg/dL (2.5-4.9); Potassium, Blood 4.2 mmol/L (3.5-5.5); Sodium, Blood 139 mmol/L (136-145)
[2021-07-03] MEDS ORDERED: ATOR20 PO (11:24)
[2021-07-03] MEDS ORDERED: CLOP75 PO (11:25)
[2021-07-03] MEDS ORDERED: MEMA10 PO (11:26)
[2021-07-03] MEDS ORDERED: DONEPEZIL HCL10 MG PO (11:27)
--- NOTE | 2021-07-03 13:38 | NUR ---
DR. VILLALBA NOTIFIED OF UPDATED HOME MEDICATION LIST. PLAN TO CLARIFY USE OF BLOOD THINNERS WITH DR. CAT. NICOTINE PATCH REQUESTED.
--- NOTE | 2021-07-03 16:26 | NUR ---
ADL ASSISTED PT TO BEDSIDE COMMODE WITH THE USE OF GAIT BELT AND WALKER. COMPLETED MICHELLE CARE. GOT PT BACK INTO CHAIR. REPLACED CONDOM CATHETER WITH THE CONDOM CATHETER THAT PT'S BROUGHT FROM HOME AND ATTACHED NEW BAG. PT IS RECLINING IN CHAIR RESTING. CALL LIGHT AND PHONE WITHIN REACH.
--- NOTE | 2021-07-03 16:28 | NUR ---
OK TO START PLAVIX AND ASPIRIN 07/03/21. LOVENOX SHOULD BE STARTED 07/04/21.
--- NOTE | 2021-07-03 19:35 | NUR ---
SHIFT SUMMARY PT IS POD#1 FROM R HIP REPAIR WITH DR. CAT. PT IS WBAT. HE GOT OOB TO THE CHAIR TODAY, HE IS A 2 ASSIST FOR TRANSFERS WITH GAIT BELT AND WALKER. PAIN MANAGED WITH TYLENOL. PT TOLERATING PO. PLAN FOR POSSIBLE SNF ON MONDAY. REPORT GIVEN TO DEBBIE GONZALEZ.
--- NOTE | 2021-07-04 19:44 | NUR ---
SHIFT SUMMARY PT IS POD#2 FROM R HIP RODDING. PAIN MANAGED WITH TYLENOL. 1-2 ASSIST WHEN OOB. ATTENDS IN PLACE, CONDOM CATH WAS LEAKING. PLAN FOR POSSIBLE DC TO SNF TOMORROW. PT HAD A 4 SECOND RUN OF SVT EARLIER TODAY, ASYMPTOMATIC. PT TACHY THIS AFTERNOON UP TO 130 FOR A SHORT TIME, ASYMPTOMATIC AND VSS. REPORT GIVEN TO DEBBIE GONZALEZ.
--- NOTE | 2021-07-05 00:18 | NUR ---
TELE CALLED STATING PT IS OFF TELE MONITOR. PT REQ TO LEAVE MONITOR OFF. CALL PLACED TO HOSPITALIST, NEW ORDER TO DC TELE.
--- NOTE | 2021-07-05 01:29 | NUR ---
PT WITH HX DEMENTIA,BECOMING ANXIOUS, UPSET HE HAS BEEN UNABLE TO REACH HIS PER PHONE LINE BUSY.ALTHOUGH PT ALSO PARTIALLY CONFUSED IN STATEMENTS.INTERMITTENTLY HOLDS UP HOSPITAL PHONE AND SAYS THAT IT IS HIS WIFES PHONE AND THAT IS WHY HE CANT REACH HER HER.PT TOOK ALL TELE PATCHES OFF AND HAD TELE BOX ON FLOOR SEPRATE FROM [facility].REFUSES TO REPLACE AND IRRITABLE.PT CONFUSED TO HIS LOCATION WHEN ASKED,BUT CAN REMEMBER HE IS IN HOSPITAL MINUTES AFTER HE IS TOLD.PT THOUGHT AT TIMES HE WAS AT HOME.GAVE PAIN MED TO ASSIST IN COMFORT POSSIBLY ALLOWING PT TO SLEEP.
--- NOTE | 2021-07-05 07:42 | NUR ---
SUMMARY PT AWAKE THIS AM.FLAT AFFECT.COTNINUES REFUSING DRESSING CHANGES.REFUSING PRILOSEC.
--- NOTE | 2021-07-05 08:30 | NUR ---
PT RESTING IN BED, APPEARS TO BE ASLEEP & APPEARS TO BE COMFORTABLE.
--- NOTE | 2021-07-05 17:35 | NUR ---
SHIFT SUMMARY PATIENT ALERT BUT DISORIENTED TO HIS LOCATION THIS AM. VERY UPSET AND IRRITABLE THAT HE COULDNT GET AHOLD OF HIS , STATING THINGS SUCH "SHE LEFT ME & WENT TO [place]", "SHE JUST UP & LEFT ME HERE", APPEARED VERY EMOTIONAL & WAS TEARFUL. CONTINUED TO REORIENT PATIENT & REASSURE HIM THAT HIS WAS AT WORK. PT & OT WORKED W/ PATIENT AND HIS MOOD APPEARED TO IMPROVE, HE STATED HE WAS MUCH HAPPIER KNOWING HE COULD STILL MOVE & "HIS LEGS STILL WORK. Z2 MEDIPORE DRESSINGS IN PLACE TO R HIP. DENIED PAIN T/O SHIFT, NO PAIN MEDICATION GIVEN. PATIENT REMAINS INCONTINENT OF URINE & ATTENDS ARE IN PLACE. INTERMITENTLY REFUSD POSITIONING T/O DAY WHEN HE "WAS COMFORTABLE". UP TO CHAIR MOST OF SHIFT & RESTED WELL IN CHAIR. PATIENT WAS MORE ORIENTED THIS AFTERNOON, TO PERSON, PLACE, & EVENT. WILL CONTINUE TO MONITOR & REPORT TO ONCOMING RN.
--- NOTE | 2021-07-06 04:18 | NUR ---
SHIFT SUMMARY NO ACUTE CHANGES THIS SHIFT. PT HAS RESTED WELL. 1 PAIN PILL FOR PAIN. DRESSINGS TO HIP REMAIN DRY AND INTACT. INCONTINENT OF URINE AND ATTENDS CHANGED PRN. BED ALARM IN PLACE FOR SAFETY. CALL LIGHT WITHIN REACH.
[2021-07-06 09:59] LABS: Influenza A, PCR NEGATIVE (NEGATIVE); Influenza B, PCR NEGATIVE (NEGATIVE); Resp Syncytial Virus, PCR NEGATIVE (NEGATIVE); SARS-Cov-2 (COVID-19) PCR, MMC NEGATIVE (NEGATIVE)
[2021-07-06] MEDS ORDERED: DOCU100 PO (11:22)
[2021-07-06] MEDS ORDERED: Acetaminophen650 M1 PO (11:22)
[2021-07-06] MEDS ORDERED: NICO21TP TOP (11:23)
[2021-07-06] MEDS ORDERED: XARELTO20 MG PO (11:24)
[2021-07-06] MEDS ORDERED: OXYC5 PO (11:24)
[2021-07-06] MEDS ORDERED: SENN187 PO (11:25)
--- NOTE | 2021-07-06 12:13 | NUR ---
DISCHARGE VSS ON RA, X2 MEDIPORE DRESSINGS TO R HIP, SMALL SPOT OF OLD SHADOWING PRESENT, PATIENT REFUSES DRESSING CHANGE. EATING, DRINKING, & VOIDING WELL. TRANSFERD TO W/C W/ 2P MOD ASSIST. REPORT CALLED TO TITUS STANTON RN. DISCHARGE PACKET SENT W/ PATIENT.
== END 2021-07-06 12:00 | DRG 482 ==
LOC: ER 11:29 → SURS 13:45 → ER 14:42 → SURS 14:53
PROVIDERS: Family Medicine; Nurse Practitioner Acute Care; Orthopaedic Surgery; ADMIT Internal Medicine
PROC: 0QS636Z Reposition Right Upper Femur with Intramedullary Internal Fixation Device, Percutaneous Approach (ICD-10-PCS; principal; 2021-07-02 12:00)
DX: S72.141A Displaced intertrochanteric fracture of right femur, initial encounter for closed fracture (principal); Z20.822 Contact with and (suspected) exposure to COVID-19; Z66 Do not resuscitate; D69.6 Thrombocytopenia, unspecified; D64.9 Anemia, unspecified; F03.90 Unspecified dementia, unspecified severity, without behavioral disturbance, psychotic disturbance, mood disturbance, and anxiety; K21.9 Gastro-esophageal reflux disease without esophagitis; I69.398 Other sequelae of cerebral infarction; F17.210 Nicotine dependence, cigarettes, uncomplicated; Z79.899 Other long term (current) drug therapy; Z88.0 Allergy status to penicillin; Z79.82 Long term (current) use of aspirin; W19.XXXA Unspecified fall, initial encounter
CPT/HCPCS: 0241U; 36415; 71045; 73502; 80053; 80069; 83735; 84145; 85025; 85027; 93005; 93010; 97110; 97162; 97166; 97530; 99284-25; A9270; C1713; C1776; J0690; J1100; J1650; J2250; J2370; J2405; J2704; J3010; J7030; J7120

== ENCOUNTER → 2021-09-09 | Outpatient (CLI) | payer MEDICARE, OTHER | END | disposition home or self-care (01) | LOC: LAB UVN 12:20 | DX: I10 Essential (primary) hypertension (principal); R39.9 Unspecified symptoms and signs involving the genitourinary system ==

== ENCOUNTER → 2021-10-30 | Outpatient (CLI) | payer MEDICARE, OTHER ==
[~2021-10-30] MED LIST changes: +ATOR20 PO; +Acetaminophen650 M1 PO; +CLOP75 PO; +DOCU100 PO; +DONEPEZIL HCL10 MG PO; +MEMA10 PO; +NICO21TP TOP; +OXYC5 PO; +SENN187 PO; +XARELTO20 MG PO
[2021-10-30 09:57] LABS: Appearance, Urine Hazy (Clear); Bilirubin, Urine Neg (Neg); Blood, Urine 1+ (Neg); Color, Urine Yellow (P-Yellow); Glucose Qualitative, Urine Neg (Neg); Ketones, Urine Neg (Neg); Leukocyte Esterase, Urine 3+ (Neg); Nitrite, Urine Pos (Neg); Protein, Urine 1+ (Neg); Urobilinogen, Urine NORM (Normal)
[2021-10-30 10:16] LABS: Red Blood Cells, Urine 0-2 /hpf (0-2)
[2021-10-30 10:17] LABS: Bacteria Many /hpf; Squamous Epithelial Cells Rare /hpf (Few)
== END ==
LOC: LAB UVN 05:40 → EDSTATUS 10:13
PROVIDERS: Internal Medicine
DX: N39.0 Urinary tract infection, site not specified (principal)
CPT/HCPCS: 81001; 87077; 87086; 87186

== ENCOUNTER → 2022-08-06 | Outpatient (CLI) | payer MEDICARE, OTHER ==
[~2022-08-06] MED LIST changes: +CLIN300 PO; +LORA10ER PO; +ONDA4ODT MM; +TAMS.4ER PO
== END | disposition home or self-care (01) ==
LOC: LAB SHORT 15:00 → LAB 15:00
DX: R31.9 Hematuria, unspecified (principal)
CPT/HCPCS: 87077; 87086; 87186

== ENCOUNTER 2022-08-08 05:42 | Emergency (ER) | payer MEDICARE, OTHER ==
[~2022-08-08] VITALS: Ht 190.5 cm; Wt 104.3 kg
[~2022-08-08 05:42] MED LIST changes: -LORA10ER PO; -TAMS.4ER PO
[2022-08-08 06:04] LABS: BASOPHILS ABSOLUTE AUTO 0.02 K/mm3 (0.00-0.23); BASOPHILS PERCENT AUTO 0 % (0-2); EOSINOPHILS PERCENT AUTO 0 % (0-6); Hematocrit 42.2 % (37.0-53.0); Hemoglobin 14.7 g/dL (13.5-17.5); IMMATURE GRAN ABSOLUTE AUTO 0.14 K/mm3 (0.00-0.10); IMMATURE GRAN PERCENT AUTO 1 % (0-1); LYMPHOCYTES ABSOLUTE AUTO 0.37 K/mm3 (0.84-5.20); LYMPHOCYTES PERCENT AUTO 3 % (21-46); MONOCYTES ABSOLUTE AUTO 0.61 K/mm3 (0.16-1.47); MONOCYTES PERCENT AUTO 5 % (4-13); Mean Corpuscular HGB 31.2 pg (26.0-34.0); Mean Corpuscular HGB Conc 34.8 g/dL (31.5-36.5); Mean Corpuscular Volume 90 fL (80-100); Mean Platelet Volume 10.4 fL (9.1-12.4); NEUTROPHILS ABSOLUTE AUTO 11.62 K/mm3 (1.96-9.15); NEUTROPHILS PERCENT AUTO 91 % (41-73); Platelet Count 94 K/mm3 (150-400); RDW Coefficient Variation 13.8 % (11.7-14.2); RDW Standard Deviation 45.7 fL (35.1-46.3); Red Blood Cell Count 4.71 M/mm3 (4.30-5.90); White Blood Cell Count 12.76 K/mm3 (4.00-11.30)
[2022-08-08 06:21] LABS: Albumin, Blood 3.2 g/dL (3.4-5.0); Albumin/Globulin Ratio 0.9 (0.8-1.8); Bilirubin, Total 0.9 mg/dL (0.1-1.0); Bun/Creatinine Ratio 20.6 (12.0-20.0); Calcium, Blood 8.4 mg/dL (8.5-10.1); Creatinine, Blood 1.65 mg/dL (0.60-1.20); Globulin, Blood 3.6 g/dL (2.2-4.0); Potassium, Blood 4.2 mmol/L (3.5-5.5); Total Protein, Blood 6.8 g/dL (6.4-8.2)
[2022-08-08 07:06] LABS: Influenza A, PCR NEGATIVE (NEGATIVE); Influenza B, PCR NEGATIVE (NEGATIVE); Resp Syncytial Virus, PCR NEGATIVE (NEGATIVE); SARS-Cov-2 (COVID-19) PCR, MMC NEGATIVE (NEGATIVE)
[2022-08-08] MEDS ORDERED: LORA10ER PO (07:53)
[2022-08-08] MEDS ORDERED: TAMS.4ER PO (07:53)
[2022-08-08 13:45] VITALS: BP 100/73
== END 2022-08-08 14:20 | disposition short-term general hospital (02) ==
LOC: ER 05:42
PROVIDERS: Emergency Medicine; Student in an Organized Health Care Education/Training Program
DX: A41.9 Sepsis, unspecified organism (principal); N12 Tubulo-interstitial nephritis, not specified as acute or chronic; N28.89 Other specified disorders of kidney and ureter; N13.2 Hydronephrosis with renal and ureteral calculous obstruction; K21.9 Gastro-esophageal reflux disease without esophagitis; I10 Essential (primary) hypertension; Z88.0 Allergy status to penicillin; Z79.899 Other long term (current) drug therapy; Z79.82 Long term (current) use of aspirin; F17.200 Nicotine dependence, unspecified, uncomplicated
CPT/HCPCS: 0241U; 36415; 71045; 74176; 76770; 80053; 83605; 85025; 87040; 87077; 87186; 93005; 93010; 96361; 96365; 96366; 96367; 96375; 99285-25; J0153; J0696; J1885; J3370; J7030; J7050

== ENCOUNTER 2022-12-24 12:31 | Emergency (ER) | payer MEDICARE, OTHER ==
[~2022-12-24] VITALS: Ht 188 cm; Wt 90.7 kg
[~2022-12-24 12:31] MED LIST changes: +LORA10ER PO; +TAMS.4ER PO
[2022-12-24] MEDS ORDERED: CRANBERRY450 M1 PO (12:50)
[2022-12-24] MEDS ORDERED: URITRAX47 GM PO (12:51)
[2022-12-24] MEDS ORDERED: ATOR20 PO (12:51)
[2022-12-24] MEDS ORDERED: MAGNESIUM OXID500 MG PO (13:16)
[2022-12-24] MEDS ORDERED: MELA3 PO (13:16)
[2022-12-24] MEDS ORDERED: PANT20 PO (13:16)
[2022-12-24] MEDS ORDERED: BRINTELLIX10 MG PO (13:17)
[2022-12-24] MEDS ORDERED: VITAMIN D5000 UNIT PO (13:18)
[2022-12-24] MEDS ORDERED: ELIQUIS5 M2 PO (13:18)
[2022-12-24] MEDS ORDERED: Florastor250 MG PO (13:19)
[2022-12-24] MEDS ORDERED: METO100ER PO (13:20)
[2022-12-24] MEDS ORDERED: BISA10S PR (13:21)
[2022-12-24] MEDS ORDERED: Calcium Carbon500 MG PO (13:22)
[2022-12-24 13:43] LABS: BASOPHILS ABSOLUTE AUTO 0.02 K/mm3 (0.00-0.23); BASOPHILS PERCENT AUTO 0 % (0-2); EOSINOPHILS ABSOLUTE AUTO 0.17 K/mm3 (0.00-0.68); EOSINOPHILS PERCENT AUTO 1 % (0-6); Hematocrit 43.9 % (37.0-53.0); Hemoglobin 14.8 g/dL (13.5-17.5); IMMATURE GRAN ABSOLUTE AUTO 0.04 K/mm3 (0.00-0.10); IMMATURE GRAN PERCENT AUTO 0 % (0-1); LYMPHOCYTES ABSOLUTE AUTO 2.05 K/mm3 (0.84-5.20); LYMPHOCYTES PERCENT AUTO 16 % (21-46); MONOCYTES ABSOLUTE AUTO 1.62 K/mm3 (0.16-1.47); MONOCYTES PERCENT AUTO 12 % (4-13); Mean Corpuscular HGB 30.6 pg (26.0-34.0); Mean Corpuscular HGB Conc 33.7 g/dL (31.5-36.5); Mean Corpuscular Volume 91 fL (80-100); Mean Platelet Volume 10.9 fL (9.1-12.4); NEUTROPHILS ABSOLUTE AUTO 9.22 K/mm3 (1.96-9.15); NEUTROPHILS PERCENT AUTO 70 % (41-73); Platelet Count 136 K/mm3 (150-400); RDW Coefficient Variation 13.4 % (11.7-14.2); Red Blood Cell Count 4.84 M/mm3 (4.30-5.90); White Blood Cell Count 13.12 K/mm3 (4.00-11.30)
[2022-12-24 14:01] LABS: Albumin, Blood 3.3 g/dL (3.4-5.0); Albumin/Globulin Ratio 0.9 (0.8-1.8); Bilirubin, Total 0.7 mg/dL (0.1-1.0); Calcium, Blood 8.9 mg/dL (8.5-10.1); Creatinine, Blood 1.05 mg/dL (0.60-1.20); Globulin, Blood 3.8 g/dL (2.2-4.0); Total Protein, Blood 7.1 g/dL (6.4-8.2)
[2022-12-24 15:13] LABS: Source, Urine Straight Cath
[2022-12-24 15:19] LABS: Appearance, Urine Hazy (Clear); Bilirubin, Urine Neg (Neg); Blood, Urine 5+ (Neg); Color, Urine Amber (P-Yellow); Glucose Qualitative, Urine Neg (Neg); Ketones, Urine 1+ (Neg); Leukocyte Esterase, Urine Neg (Neg); Nitrite, Urine Neg (Neg); Protein, Urine 1+ (Neg); Specific Gravity, Urine 1.025 (1.003-1.022); Urobilinogen, Urine NORM (Normal)
[2022-12-24 15:44] LABS: Bacteria Many /hpf; Mucus Light (0-Heavy); Red Blood Cells, Urine 50-100 /hpf (0-2); Squamous Epithelial Cells Few /hpf (Few)
[2022-12-24 15:45] VITALS: BP 157/62
== END 2022-12-24 16:06 | disposition home or self-care (01) ==
LOC: ER 12:31
PROVIDERS: Emergency Medicine
DX: R31.9 Hematuria, unspecified (principal); K21.9 Gastro-esophageal reflux disease without esophagitis; I10 Essential (primary) hypertension; F17.200 Nicotine dependence, unspecified, uncomplicated
CPT/HCPCS: 71045; 74176; 80053; 81001; 85025; 87086; 93005; 93010; 99285-25; P9612

== ENCOUNTER 2023-05-08 00:25 | Emergency (ER) | payer MEDICARE, OTHER ==
[~2023-05-08] VITALS: Ht 188 cm; Wt 102.1 kg
[~2023-05-08 00:25] MED LIST changes: +BISA10S PR; +BRINTELLIX10 MG PO; +CRANBERRY450 M1 PO; +Calcium Carbon500 MG PO; +ELIQUIS5 M2 PO; +Florastor250 MG PO; +MAGNESIUM OXID500 MG PO; +MELA3 PO; +METO100ER PO; +PANT20 PO; +URITRAX47 GM PO; +VITAMIN D5000 UNIT PO
[2023-05-08 01:00] VITALS: BP 101/74
[2023-05-08] MEDS ORDERED: CEFD300 PO (02:14)
[2023-05-08] MEDS ORDERED: Cefdinir 300 MG Cap PO ONE (02:15)
== END 2023-05-08 02:40 | disposition home or self-care (01) ==
LOC: ER 00:25
DX: R91.8 Other nonspecific abnormal finding of lung field (principal); F17.200 Nicotine dependence, unspecified, uncomplicated; K21.9 Gastro-esophageal reflux disease without esophagitis; I10 Essential (primary) hypertension; F03.90 Unspecified dementia, unspecified severity, without behavioral disturbance, psychotic disturbance, mood disturbance, and anxiety; F10.10 Alcohol abuse, uncomplicated; Z86.73 Personal history of transient ischemic attack (TIA), and cerebral infarction without residual deficits
CPT/HCPCS: 71046; 99283-25; A9270

== ENCOUNTER 2023-10-10 12:45 | Emergency (ER) | payer MEDICARE, OTHER ==
[~2023-10-10] VITALS: Ht 193 cm; Wt 99.8 kg
[~2023-10-10 12:45] MED LIST changes: +CEFD300 PO
[2023-10-10 13:14] LABS: BASOPHILS ABSOLUTE AUTO 0.02 K/mm3 (0.00-0.23); BASOPHILS PERCENT AUTO 0 % (0-2); EOSINOPHILS ABSOLUTE AUTO 0.24 K/mm3 (0.00-0.68); EOSINOPHILS PERCENT AUTO 4 % (0-6); Hematocrit 40.7 % (37.0-53.0); Hemoglobin 13.6 g/dL (13.5-17.5); IMMATURE GRAN ABSOLUTE AUTO 0.01 K/mm3 (0.00-0.10); IMMATURE GRAN PERCENT AUTO 0 % (0-1); LYMPHOCYTES ABSOLUTE AUTO 2.51 K/mm3 (0.84-5.20); LYMPHOCYTES PERCENT AUTO 38 % (21-46); MONOCYTES ABSOLUTE AUTO 0.61 K/mm3 (0.16-1.47); MONOCYTES PERCENT AUTO 9 % (4-13); Mean Corpuscular HGB 30.2 pg (26.0-34.0); Mean Corpuscular HGB Conc 33.4 g/dL (31.5-36.5); Mean Corpuscular Volume 90 fL (80-100); Mean Platelet Volume 10.3 fL (9.1-12.4); NEUTROPHILS ABSOLUTE AUTO 3.23 K/mm3 (1.96-9.15); NEUTROPHILS PERCENT AUTO 49 % (41-73); Platelet Count 136 K/mm3 (150-400); RDW Coefficient Variation 13.5 % (11.7-14.2); RDW Standard Deviation 45.1 fL (35.1-46.3); Red Blood Cell Count 4.51 M/mm3 (4.30-5.90); White Blood Cell Count 6.62 K/mm3 (4.00-11.30)
[2023-10-10 13:26] LABS: Albumin, Blood 3.2 g/dL (3.4-5.0); Albumin/Globulin Ratio 0.9 (0.8-1.8); Bilirubin, Total 0.6 mg/dL (0.1-1.0); Bun/Creatinine Ratio 20.7 (12.0-20.0); Calcium, Blood 8.4 mg/dL (8.5-10.1); Creatinine, Blood 1.11 mg/dL (0.60-1.20); Globulin, Blood 3.5 g/dL (2.2-4.0); Potassium, Blood 4.3 mmol/L (3.5-5.5); Total Protein, Blood 6.7 g/dL (6.4-8.2)
[2023-10-10 14:03] LABS: Source, Urine Straight Cath
[2023-10-10 14:09] LABS: Appearance, Urine Hazy (Clear); Bilirubin, Urine Neg (Neg); Blood, Urine 3+ (Neg); Color, Urine Yellow (P-Yellow); Glucose Qualitative, Urine Neg (Neg); Ketones, Urine Neg (Neg); Leukocyte Esterase, Urine Neg (Neg); Nitrite, Urine Neg (Neg); Protein, Urine 1+ (Neg); Specific Gravity, Urine 1.025 (1.003-1.022); Urobilinogen, Urine 1+ (Normal)
[2023-10-10 14:21] LABS: Amorphous Light (0-Heavy); Bacteria Many /hpf; Mucus Light (0-Heavy); Red Blood Cells, Urine 25-50 /hpf (0-2); Renal Epithelial Rare /hpf (0-Rare); Squamous Epithelial Cells Rare /hpf (Few); White Blood Cells, Urine 0-2 /hpf (0-5)
[2023-10-10 14:22] LABS: Transitional Epithelial Cells Rare /hpf (0-Rare)
[2023-10-10 15:45] VITALS: BP 118/73
== END 2023-10-10 16:28 | disposition home or self-care (01) ==
LOC: ER 12:45
PROVIDERS: Emergency Medicine; Student in an Organized Health Care Education/Training Program
DX: R06.02 Shortness of breath (principal); R05.9 Cough, unspecified; R10.11 Right upper quadrant pain; I10 Essential (primary) hypertension; F03.90 Unspecified dementia, unspecified severity, without behavioral disturbance, psychotic disturbance, mood disturbance, and anxiety; K21.9 Gastro-esophageal reflux disease without esophagitis; F17.200 Nicotine dependence, unspecified, uncomplicated; Z79.899 Other long term (current) drug therapy; Z79.01 Long term (current) use of anticoagulants; Z79.82 Long term (current) use of aspirin; Z88.0 Allergy status to penicillin
CPT/HCPCS: 51701; 71046; 80053; 81001; 83690; 83880; 84145; 85025; 87086; 93005; 93010; 99284-25

== ENCOUNTER 2024-01-26 03:46 | Day surgery (SDC) | payer MEDICARE, OTHER ==
[2024-01-26] MEDS ORDERED: Miconazole Nitrate 28 GM CREAM..G. TOP ONE (13:34)
== END 2024-01-27 02:58 | disposition home or self-care (01) ==
LOC: WOUND 03:46
DX: L97.822 Non-pressure chronic ulcer of other part of left lower leg with fat layer exposed (principal); I87.2 Venous insufficiency (chronic) (peripheral); I73.9 Peripheral vascular disease, unspecified; G81.94 Hemiplegia, unspecified affecting left nondominant side; I25.10 Atherosclerotic heart disease of native coronary artery without angina pectoris; I48.91 Unspecified atrial fibrillation; I11.0 Hypertensive heart disease with heart failure; I50.9 Heart failure, unspecified; I25.2 Old myocardial infarction; Z79.01 Long term (current) use of anticoagulants; Z88.0 Allergy status to penicillin; Z87.891 Personal history of nicotine dependence
CPT/HCPCS: A9270; G0463

== ENCOUNTER 2024-02-22 10:18 | Day surgery (SDC) | payer MEDICARE, OTHER | END 2024-02-22 23:00 | disposition home or self-care (01) | LOC: WOUND 10:18 | DX: L97.822 Non-pressure chronic ulcer of other part of left lower leg with fat layer exposed (principal); I87.2 Venous insufficiency (chronic) (peripheral); I73.9 Peripheral vascular disease, unspecified; G81.94 Hemiplegia, unspecified affecting left nondominant side; I25.10 Atherosclerotic heart disease of native coronary artery without angina pectoris; I48.91 Unspecified atrial fibrillation; I11.0 Hypertensive heart disease with heart failure; I50.9 Heart failure, unspecified; Z79.01 Long term (current) use of anticoagulants | CPT/HCPCS: G0463 ==

== ENCOUNTER 2024-02-29 01:54 | Day surgery (SDC) | payer MEDICARE, OTHER | END 2024-02-29 23:00 | disposition home or self-care (01) | LOC: WOUND 01:54 | DX: L97.822 Non-pressure chronic ulcer of other part of left lower leg with fat layer exposed (principal); I87.2 Venous insufficiency (chronic) (peripheral); I73.9 Peripheral vascular disease, unspecified; I11.0 Hypertensive heart disease with heart failure; I50.9 Heart failure, unspecified; I25.10 Atherosclerotic heart disease of native coronary artery without angina pectoris; I48.91 Unspecified atrial fibrillation; Z79.01 Long term (current) use of anticoagulants | CPT/HCPCS: G0463 ==

== ENCOUNTER 2024-03-07 05:44 | Day surgery (SDC) | payer MEDICARE, OTHER | END 2024-03-07 23:00 | disposition home or self-care (01) | LOC: WOUND 05:44 | DX: L97.822 Non-pressure chronic ulcer of other part of left lower leg with fat layer exposed (principal); I87.2 Venous insufficiency (chronic) (peripheral); I73.9 Peripheral vascular disease, unspecified; G81.94 Hemiplegia, unspecified affecting left nondominant side; I25.10 Atherosclerotic heart disease of native coronary artery without angina pectoris; I11.0 Hypertensive heart disease with heart failure; I50.9 Heart failure, unspecified; I48.91 Unspecified atrial fibrillation; Z79.01 Long term (current) use of anticoagulants | CPT/HCPCS: G0463 ==

== ENCOUNTER 2024-03-28 04:51 | Day surgery (SDC) | payer MEDICARE, OTHER | END 2024-03-28 23:00 | disposition home or self-care (01) | LOC: WOUND 04:51 | DX: L97.822 Non-pressure chronic ulcer of other part of left lower leg with fat layer exposed (principal); I87.2 Venous insufficiency (chronic) (peripheral); I73.9 Peripheral vascular disease, unspecified; G81.94 Hemiplegia, unspecified affecting left nondominant side; I11.0 Hypertensive heart disease with heart failure; I50.9 Heart failure, unspecified; I25.10 Atherosclerotic heart disease of native coronary artery without angina pectoris; I48.91 Unspecified atrial fibrillation; Z79.01 Long term (current) use of anticoagulants | CPT/HCPCS: G0463 ==

== ENCOUNTER 2024-04-04 02:08 | Day surgery (SDC) | payer MEDICARE, OTHER | END 2024-04-04 23:00 | disposition home or self-care (01) | LOC: WOUND 02:08 | DX: L97.822 Non-pressure chronic ulcer of other part of left lower leg with fat layer exposed (principal); I25.10 Atherosclerotic heart disease of native coronary artery without angina pectoris; I48.91 Unspecified atrial fibrillation; I11.0 Hypertensive heart disease with heart failure; I50.9 Heart failure, unspecified; I87.2 Venous insufficiency (chronic) (peripheral); I73.9 Peripheral vascular disease, unspecified; G81.94 Hemiplegia, unspecified affecting left nondominant side; Z79.01 Long term (current) use of anticoagulants | CPT/HCPCS: G0463 ==

== ENCOUNTER → 2024-04-11 | Day surgery (SDC) | payer MEDICARE, OTHER ==
[~2024-04-11] MED LIST changes: +Lidocaine HCl 4% Cream 5 GM ONE
== END ==
LOC: WOUND 04:47
DX: L97.822 Non-pressure chronic ulcer of other part of left lower leg with fat layer exposed (principal); I87.2 Venous insufficiency (chronic) (peripheral); I73.9 Peripheral vascular disease, unspecified; G81.94 Hemiplegia, unspecified affecting left nondominant side; Z79.01 Long term (current) use of anticoagulants
CPT/HCPCS: A9270; G0463

== ENCOUNTER 2024-04-18 01:45 | Day surgery (SDC) | payer MEDICARE, OTHER ==
[~2024-04-18 01:45] MED LIST changes: -Lidocaine HCl 4% Cream 5 GM ONE
== END 2024-04-18 23:00 | disposition home or self-care (01) ==
LOC: WOUND 01:45
DX: L97.822 Non-pressure chronic ulcer of other part of left lower leg with fat layer exposed (principal); S81.802D Unspecified open wound, left lower leg, subsequent encounter; I87.2 Venous insufficiency (chronic) (peripheral); I73.9 Peripheral vascular disease, unspecified; G81.94 Hemiplegia, unspecified affecting left nondominant side; I25.10 Atherosclerotic heart disease of native coronary artery without angina pectoris; I48.91 Unspecified atrial fibrillation; I11.0 Hypertensive heart disease with heart failure; I50.9 Heart failure, unspecified; X58.XXXD Exposure to other specified factors, subsequent encounter
CPT/HCPCS: G0463

== ENCOUNTER 2024-05-10 03:57 | Day surgery (SDC) | payer MEDICARE, OTHER | END 2024-05-10 23:00 | disposition home or self-care (01) | LOC: WOUND 03:57 | DX: L97.812 Non-pressure chronic ulcer of other part of right lower leg with fat layer exposed (principal); I25.10 Atherosclerotic heart disease of native coronary artery without angina pectoris; I48.91 Unspecified atrial fibrillation; I50.9 Heart failure, unspecified; I87.2 Venous insufficiency (chronic) (peripheral); I73.9 Peripheral vascular disease, unspecified; G81.94 Hemiplegia, unspecified affecting left nondominant side; Z79.01 Long term (current) use of anticoagulants | CPT/HCPCS: G0463 ==

== ENCOUNTER 2024-05-16 01:01 | Day surgery (SDC) | payer MEDICARE, OTHER | END 2024-05-16 23:00 | disposition home or self-care (01) | LOC: WOUND 01:01 | DX: S81.812D Laceration without foreign body, left lower leg, subsequent encounter (principal); L97.822 Non-pressure chronic ulcer of other part of left lower leg with fat layer exposed; I87.2 Venous insufficiency (chronic) (peripheral); I73.9 Peripheral vascular disease, unspecified; I25.10 Atherosclerotic heart disease of native coronary artery without angina pectoris; I48.91 Unspecified atrial fibrillation; I11.0 Hypertensive heart disease with heart failure; I50.9 Heart failure, unspecified; I69.354 Hemiplegia and hemiparesis following cerebral infarction affecting left non-dominant side; Z79.01 Long term (current) use of anticoagulants | CPT/HCPCS: G0463 ==

== ENCOUNTER 2024-05-23 02:26 | Day surgery (SDC) | payer MEDICARE, OTHER | END 2024-05-23 23:00 | disposition home or self-care (01) | LOC: WOUND 02:26 | DX: L97.822 Non-pressure chronic ulcer of other part of left lower leg with fat layer exposed (principal); L97.812 Non-pressure chronic ulcer of other part of right lower leg with fat layer exposed; I25.10 Atherosclerotic heart disease of native coronary artery without angina pectoris; I48.91 Unspecified atrial fibrillation; I11.0 Hypertensive heart disease with heart failure; I50.9 Heart failure, unspecified; Z79.01 Long term (current) use of anticoagulants; I87.2 Venous insufficiency (chronic) (peripheral); I73.9 Peripheral vascular disease, unspecified; G81.94 Hemiplegia, unspecified affecting left nondominant side | CPT/HCPCS: G0463 ==

== ENCOUNTER 2024-05-30 04:18 | Day surgery (SDC) | payer MEDICARE, OTHER ==
[2024-05-30] MEDS ORDERED: Lidocaine HCl 4% Cream 5 GM ONE (15:03)
[2024-05-30] MEDS ORDERED: Silver Nitr/Potassium Nitrate 1 EA APPL ONE (15:04)
== END 2024-05-30 23:00 | disposition home or self-care (01) ==
LOC: WOUND 04:18
DX: L97.822 Non-pressure chronic ulcer of other part of left lower leg with fat layer exposed (principal); I87.2 Venous insufficiency (chronic) (peripheral); I73.9 Peripheral vascular disease, unspecified; G81.94 Hemiplegia, unspecified affecting left nondominant side; Z79.01 Long term (current) use of anticoagulants
CPT/HCPCS: A9270

== ENCOUNTER 2024-06-06 00:59 | Day surgery (SDC) | payer MEDICARE, OTHER | END 2024-06-06 23:00 | disposition home or self-care (01) | LOC: WOUND 00:59 | DX: L97.812 Non-pressure chronic ulcer of other part of right lower leg with fat layer exposed (principal); I87.2 Venous insufficiency (chronic) (peripheral); I73.9 Peripheral vascular disease, unspecified; G81.94 Hemiplegia, unspecified affecting left nondominant side; I11.0 Hypertensive heart disease with heart failure; I50.9 Heart failure, unspecified; I48.91 Unspecified atrial fibrillation; I25.10 Atherosclerotic heart disease of native coronary artery without angina pectoris; Z79.01 Long term (current) use of anticoagulants | CPT/HCPCS: G0463 ==

== ENCOUNTER 2024-06-13 02:43 | Day surgery (SDC) | payer MEDICARE, OTHER | END 2024-06-13 23:00 | disposition home or self-care (01) | LOC: WOUND 02:43 | DX: L97.812 Non-pressure chronic ulcer of other part of right lower leg with fat layer exposed (principal); I87.2 Venous insufficiency (chronic) (peripheral); I73.9 Peripheral vascular disease, unspecified; G81.94 Hemiplegia, unspecified affecting left nondominant side; I25.10 Atherosclerotic heart disease of native coronary artery without angina pectoris; I48.91 Unspecified atrial fibrillation; I11.0 Hypertensive heart disease with heart failure; I50.9 Heart failure, unspecified; Z79.01 Long term (current) use of anticoagulants | CPT/HCPCS: G0463 ==

== ENCOUNTER 2024-06-20 00:18 | Day surgery (SDC) | payer MEDICARE, OTHER | END 2024-06-20 23:00 | disposition home or self-care (01) | LOC: WOUND 00:18 | DX: L97.829 Non-pressure chronic ulcer of other part of left lower leg with unspecified severity (principal); L97.812 Non-pressure chronic ulcer of other part of right lower leg with fat layer exposed; I25.10 Atherosclerotic heart disease of native coronary artery without angina pectoris; I48.91 Unspecified atrial fibrillation; I11.0 Hypertensive heart disease with heart failure; I50.9 Heart failure, unspecified; I87.2 Venous insufficiency (chronic) (peripheral); I73.9 Peripheral vascular disease, unspecified; G81.94 Hemiplegia, unspecified affecting left nondominant side; Z79.01 Long term (current) use of anticoagulants | CPT/HCPCS: G0463 ==

== ENCOUNTER 2024-06-27 04:01 | Day surgery (SDC) | payer MEDICARE, OTHER ==
[2024-06-27] MEDS ORDERED: Lidocaine HCl 4% Cream 5 GM ONE (14:09)
== END 2024-06-27 23:00 | disposition home or self-care (01) ==
LOC: WOUND 04:01
DX: L97.821 Non-pressure chronic ulcer of other part of left lower leg limited to breakdown of skin (principal); I87.2 Venous insufficiency (chronic) (peripheral); I73.9 Peripheral vascular disease, unspecified; I69.354 Hemiplegia and hemiparesis following cerebral infarction affecting left non-dominant side; I25.10 Atherosclerotic heart disease of native coronary artery without angina pectoris; I11.0 Hypertensive heart disease with heart failure; I50.9 Heart failure, unspecified; I48.91 Unspecified atrial fibrillation; Z79.01 Long term (current) use of anticoagulants
CPT/HCPCS: A9270; G0463

== ENCOUNTER 2024-07-04 01:57 | Day surgery (SDC) | payer MEDICARE, OTHER | END 2024-07-04 23:00 | disposition home or self-care (01) | LOC: WOUND 01:57 | DX: L97.829 Non-pressure chronic ulcer of other part of left lower leg with unspecified severity (principal); L97.812 Non-pressure chronic ulcer of other part of right lower leg with fat layer exposed; L03.116 Cellulitis of left lower limb; I87.2 Venous insufficiency (chronic) (peripheral); I73.9 Peripheral vascular disease, unspecified; G81.94 Hemiplegia, unspecified affecting left nondominant side; Z79.01 Long term (current) use of anticoagulants; I11.0 Hypertensive heart disease with heart failure; I50.9 Heart failure, unspecified; I25.10 Atherosclerotic heart disease of native coronary artery without angina pectoris; I48.91 Unspecified atrial fibrillation | CPT/HCPCS: G0463 ==

== ENCOUNTER 2024-07-11 02:42 | Day surgery (SDC) | payer MEDICARE, OTHER ==
[2024-07-11] MEDS ORDERED: Lidocaine HCl 4% Cream 5 GM ONE (14:27)
[2024-07-11] MEDS ORDERED: Silver Nitr/Potassium Nitrate 1 EA APPL ONE (14:29)
== END 2024-07-11 23:00 | disposition home or self-care (01) ==
LOC: WOUND 02:42
DX: L97.812 Non-pressure chronic ulcer of other part of right lower leg with fat layer exposed (principal); I87.2 Venous insufficiency (chronic) (peripheral); I73.9 Peripheral vascular disease, unspecified; G81.94 Hemiplegia, unspecified affecting left nondominant side; I25.10 Atherosclerotic heart disease of native coronary artery without angina pectoris; I48.91 Unspecified atrial fibrillation; I11.0 Hypertensive heart disease with heart failure; I50.9 Heart failure, unspecified; Z86.73 Personal history of transient ischemic attack (TIA), and cerebral infarction without residual deficits; Z79.01 Long term (current) use of anticoagulants
CPT/HCPCS: A9270; G0463

== ENCOUNTER 2024-07-25 01:14 | Day surgery (SDC) | payer MEDICARE, OTHER | END 2024-07-25 23:00 | disposition home or self-care (01) | LOC: WOUND 01:14 | DX: L97.811 Non-pressure chronic ulcer of other part of right lower leg limited to breakdown of skin (principal); L97.821 Non-pressure chronic ulcer of other part of left lower leg limited to breakdown of skin; I87.2 Venous insufficiency (chronic) (peripheral); I73.9 Peripheral vascular disease, unspecified; G81.94 Hemiplegia, unspecified affecting left nondominant side; I10 Essential (primary) hypertension; I48.91 Unspecified atrial fibrillation; I11.0 Hypertensive heart disease with heart failure; I50.9 Heart failure, unspecified; Z79.01 Long term (current) use of anticoagulants | CPT/HCPCS: G0463 ==

== ENCOUNTER 2024-08-29 00:44 | Day surgery (SDC) | payer MEDICARE, OTHER ==
[2024-08-29] MEDS ORDERED: Lidocaine HCl 4% Cream 5 GM ONE (10:03)
== END 2024-08-29 23:00 | disposition home or self-care (01) ==
LOC: WOUND 00:44
DX: L97.812 Non-pressure chronic ulcer of other part of right lower leg with fat layer exposed (principal); S81.812A Laceration without foreign body, left lower leg, initial encounter; X58.XXXA Exposure to other specified factors, initial encounter; I87.2 Venous insufficiency (chronic) (peripheral); I73.9 Peripheral vascular disease, unspecified; G81.94 Hemiplegia, unspecified affecting left nondominant side; I11.0 Hypertensive heart disease with heart failure; I50.9 Heart failure, unspecified; I25.10 Atherosclerotic heart disease of native coronary artery without angina pectoris; I48.91 Unspecified atrial fibrillation; Z79.01 Long term (current) use of anticoagulants
CPT/HCPCS: A9270; G0463

== ENCOUNTER 2024-09-26 01:26 | Day surgery (SDC) | payer MEDICARE, OTHER | END 2024-09-26 23:00 | disposition home or self-care (01) | LOC: WOUND 01:26 | DX: L97.812 Non-pressure chronic ulcer of other part of right lower leg with fat layer exposed (principal); I87.2 Venous insufficiency (chronic) (peripheral); I73.9 Peripheral vascular disease, unspecified; G81.94 Hemiplegia, unspecified affecting left nondominant side; I25.10 Atherosclerotic heart disease of native coronary artery without angina pectoris; I48.91 Unspecified atrial fibrillation; I11.0 Hypertensive heart disease with heart failure; I50.9 Heart failure, unspecified; Z79.01 Long term (current) use of anticoagulants | CPT/HCPCS: G0463 ==

== ENCOUNTER 2025-03-02 12:15 | Inpatient (IN) | payer MEDICARE, OTHER ==
[~2025-03-02] VITALS: Ht 185.4 cm; Wt 107.5 kg
[2025-03-02] MEDS ORDERED: Ondansetron HCl 2 MG / ML 2ML Vial IV PRN ×2 (12:55→18:05)
[2025-03-02 13:04] LABS: BASOPHILS ABSOLUTE AUTO 0.02 K/mm3 (0.00-0.23); BASOPHILS PERCENT AUTO 0 % (0-2); EOSINOPHILS ABSOLUTE AUTO 0.01 K/mm3 (0.00-0.68); EOSINOPHILS PERCENT AUTO 0 % (0-6); Hematocrit 42.8 % (37.0-53.0); Hemoglobin 14.3 g/dL (13.5-17.5); IMMATURE GRAN ABSOLUTE AUTO 0.02 K/mm3 (0.00-0.10); IMMATURE GRAN PERCENT AUTO 0 % (0-1); LYMPHOCYTES ABSOLUTE AUTO 0.17 K/mm3 (0.84-5.20); LYMPHOCYTES PERCENT AUTO 2 % (21-46); MONOCYTES ABSOLUTE AUTO 0.11 K/mm3 (0.16-1.47); MONOCYTES PERCENT AUTO 1 % (4-13); Mean Corpuscular HGB Conc 33.4 g/dL (31.5-36.5); Mean Corpuscular Volume 91 fL (80-100); NEUTROPHILS ABSOLUTE AUTO 7.37 K/mm3 (1.96-9.15); NEUTROPHILS PERCENT AUTO 96 % (41-73); NRBC ABSOLUTE 0.00 K/mm3 (0.00-0.02); NRBC Auto 0.0 /100 WBC (0.0-0.2); Platelet Count 107 K/mm3 (150-400); RDW Coefficient Variation 14.4 % (11.7-14.2); RDW Standard Deviation 47.9 fL (35.1-46.3)
[2025-03-02 13:16] LABS: Alanine Aminotransfer (ALT/SGP 28.0 U/L (12-78); Albumin, Blood 3.5 g/dL (3.4-5.0); Albumin/Globulin Ratio 1.0 (0.8-1.8); Anion Gap 7.0 mmol/L (3-11); Aspartate Aminotrans (AST/SGOT 30.0 U/L (12-37); Bilirubin, Total 1.0 mg/dL (0.1-1.0); Blood Urea Nitrogen 25.0 mg/dL (8-24); CO2, Blood 23.0 mmol/L (21-32); Calcium, Blood 8.7 mg/dL (8.5-10.1); Chloride, Blood 118.0 mmol/L (98-108); Creatinine, Blood 1.28 mg/dL (0.60-1.20); Globulin, Blood 3.4 g/dL (2.2-4.0); Glucose, Blood 84.0 mg/dL (70-99); Potassium, Blood 4.1 mmol/L (3.5-5.5); Sodium, Blood 144.0 mmol/L (136-145); Total Protein, Blood 6.9 g/dL (6.4-8.2)
[2025-03-02 13:28] LABS: Source, Urine Straight Cath
[2025-03-02 13:38] LABS: Color, Urine Red (P-Yellow); Glucose Qualitative, Urine Neg (Neg); Ketones, Urine 1+ (Neg); Leukocyte Esterase, Urine 2+ (Neg); Protein, Urine 4+ (Neg); Specific Gravity, Urine 1.020 (1.003-1.022); Urobilinogen, Urine 1+ (Normal)
[2025-03-02 13:44] LABS: Bilirubin, Urine 1+ (Neg)
[2025-03-02 13:47] LABS: Red Blood Cells, Urine TNTC /hpf (0-2)
[2025-03-02 14:29] LABS: CORONAVIRUS COVID-19 AG Negative (NEGATIVE)
[2025-03-02] MEDS ORDERED: NS 1,000 ML IV SCH ×2 (15:35→18:10)
[2025-03-02] MEDS ORDERED: CefTRIAXone Sodium 2,000 MG in NS 100 ML IV ONE (16:05)
[2025-03-02] MEDS ORDERED: NS 500 ML IV SCH (17:00)
[2025-03-02] MEDS ORDERED: Metoprolol Tartrate 1 MG/ML 5 ML VIAL IV PRN (18:05)
[2025-03-02] MEDS ORDERED: FLU VACC TS2025(65UP)/MF59C/PF 45 MCG/0.5 ML SYRINGE IM SCH (18:15)
[2025-03-02] MEDS ORDERED: FentaNYL Citrate 50 MCG/ML 2 ML Injection IV ONE (19:00)
[2025-03-02] MEDS ORDERED: Lactobacil 2-S.Thermo-Bifido 1 1 Cap PO SCH (21:00)
[2025-03-02 21:11] VITALS: BP 110/81
[2025-03-03 01:32] VITALS: BP 107/74
[2025-03-03 03:48] VITALS: BP 114/75
--- NOTE | 2025-03-03 06:35 | NUR ---
SHIFT SUMMARY PATIENT ALERT AND ORIENTED X3-4. PATIENT VERY SOFT SPOKEN. NO ACUTE CHANGES THROUGHOUT SHIFT. VITAL SIGNS STABLE. DENIES PAIN, SOB, AND CP. PATIENT IS ON BEDREST, PUREWICK IN PLACE. PATIENT REPOSITIONED THROUGHOUT SHIFT. REGULAR DIET, INFUSING NS AT 100 ML/HR. MEDICATED PER MAY. BED LOCKED AND IN LOWEST POSITION. BED AND CHAIR ALARM ON. CALL LIGHT WITHIN REACH.
--- NOTE | 2025-03-03 06:41 | NUR ---
WOUND DRESSING CHANGED
[2025-03-03 06:54] LABS: Hematocrit 36.0 % (37.0-53.0); Hemoglobin 11.7 g/dL (13.5-17.5); Mean Corpuscular HGB Conc 32.5 g/dL (31.5-36.5); Mean Corpuscular Volume 92 fL (80-100); NRBC ABSOLUTE 0.00 K/mm3 (0.00-0.02); NRBC Auto 0.0 /100 WBC (0.0-0.2); Platelet Count 85 K/mm3 (150-400); RDW Coefficient Variation 14.7 % (11.7-14.2); RDW Standard Deviation 49.7 fL (35.1-46.3)
[2025-03-03 07:07] LABS: Anion Gap 7.0 mmol/L (3-11); Blood Urea Nitrogen 25.0 mg/dL (8-24); CO2, Blood 24.0 mmol/L (21-32); Calcium, Blood 7.9 mg/dL (8.5-10.1); Chloride, Blood 116.0 mmol/L (98-108); Creatinine, Blood 1.28 mg/dL (0.60-1.20); Glucose, Blood 108.0 mg/dL (70-99); Magnesium, Blood 1.8 mg/dL (1.6-2.4); Potassium, Blood 3.4 mmol/L (3.5-5.5); Sodium, Blood 144.0 mmol/L (136-145)
[2025-03-03 07:37] VITALS: BP 94/63
[2025-03-03 11:01] VITALS: BP 120/71
[2025-03-03 15:28] VITALS: BP 110/82
--- NOTE | 2025-03-03 18:06 | NUR ---
PT PLEASANT TODAY. IN TO VISIT TODAY. PT IS QUITE SOFT SPOKEN. IV DID INFILTRATE TODAY. STOPPED AND REPLACED. HE STAYS AT [facility], UNABLE TO TAKE CARE OF HIS NEEDS. VSS. NO OTHER NEW [id number] NOTED. BED IN LOW POSITION, CALL LITE IN REACH, CALLS APROP
[2025-03-03 19:32] VITALS: BP 112/102
[2025-03-04 00:47] VITALS: BP 120/75
--- NOTE | 2025-03-04 05:02 | NUR ---
SHIFT SUMMARY NS @ 100 ML/HR IN LHA IV. PT PULLED LWR IV DURING HALLUCINATIONS THIS EVENING. DID HAVE 1 MIN RUN OF TACHYCARDIA PER TELEMETRY JUST BEFORE 0500, WIDE QRS, UNCLEAR IF P WAVES PRESENT. RESOLVED WITHOUT INTERVENTION. 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 PT AWAKE MUCH OF THIS EVENING. Q2H TURNS. COCCYX REDNESS WITHOUT SKIN BREAKDOWN. MALE PUREWICK DRAINING TEA-COLORED URINE TO SUCTION WITH SEDIMENT. TAKING PILLS WHOLE WITH WATER, TOLERATING REGULAR DIET. 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 REPORTS CONSTIPATION WITH LAST BM 1 DAY PRIOR TO ADMISSION. A&OX2 TO SELF AND PERSON, CONFUSED TO TIME/SITUATION WITH HALLUCATIONS AND PARANOIA DISPLAYED. OCCASIONAL WET COUGH WITHOUT PRODUCTION.
[2025-03-04 06:03] VITALS: BP 117/78
[2025-03-04 06:13] LABS: BASOPHILS ABSOLUTE AUTO 0.01 K/mm3 (0.00-0.23); BASOPHILS PERCENT AUTO 0 % (0-2); EOSINOPHILS ABSOLUTE AUTO 0.15 K/mm3 (0.00-0.68); EOSINOPHILS PERCENT AUTO 3 % (0-6); Hematocrit 36.6 % (37.0-53.0); Hemoglobin 12.3 g/dL (13.5-17.5); IMMATURE GRAN ABSOLUTE AUTO 0.02 K/mm3 (0.00-0.10); IMMATURE GRAN PERCENT AUTO 1 % (0-1); LYMPHOCYTES ABSOLUTE AUTO 0.60 K/mm3 (0.84-5.20); LYMPHOCYTES PERCENT AUTO 14 % (21-46); MONOCYTES ABSOLUTE AUTO 0.42 K/mm3 (0.16-1.47); MONOCYTES PERCENT AUTO 10 % (4-13); Mean Corpuscular HGB Conc 33.6 g/dL (31.5-36.5); Mean Corpuscular Volume 90 fL (80-100); NEUTROPHILS ABSOLUTE AUTO 3.21 K/mm3 (1.96-9.15); NEUTROPHILS PERCENT AUTO 73 % (41-73); NRBC ABSOLUTE 0.00 K/mm3 (0.00-0.02); NRBC Auto 0.0 /100 WBC (0.0-0.2); Platelet Count 85 K/mm3 (150-400); RDW Coefficient Variation 14.4 % (11.7-14.2); RDW Standard Deviation 48.0 fL (35.1-46.3)
[2025-03-04 06:38] LABS: Anion Gap 6.0 mmol/L (3-11); Blood Urea Nitrogen 24.0 mg/dL (8-24); CO2, Blood 24.0 mmol/L (21-32); Calcium, Blood 8.3 mg/dL (8.5-10.1); Chloride, Blood 116.0 mmol/L (98-108); Creatinine, Blood 1.19 mg/dL (0.60-1.20); Glucose, Blood 87.0 mg/dL (70-99); Potassium, Blood 3.8 mmol/L (3.5-5.5); Sodium, Blood 142.0 mmol/L (136-145)
--- NOTE | 2025-03-04 07:22 | NUR ---
PROVIDER NOTIFIED CALLED DR. MCINTOSH AND DISCUSSED PT EXPERIENCING 10 MIN ACHING CHEST PAIN, RATED 5/10. ECG TAKEN 0640, PLACED IN PATIENT CHART. PT IS ASYMPTOMATIC AND ON TELEMETRY MONITORING. DAY SHIFT RN AWARE WELL, AND PLAN TO MONITOR AT THIS TIME.
[2025-03-04 07:26] VITALS: BP 133/86
[2025-03-04] MEDS ORDERED: CEFP200 PO (11:23)
--- NOTE | 2025-03-04 11:48 | NUR ---
REPORT GIVEN TO KYRA AT [facility]. PT LEFT VIA WHEELCHAIR. HARD SCRIPT FOR MEDICATION PLACED IN FOLDER AND GIVEN TO TRANSPORT TEAM.
== END 2025-03-04 11:50 | disposition home or self-care (01) | DRG 871 ==
LOC: ER 12:15 → MEDS 12:16
PROVIDERS: Nurse Practitioner Acute Care; Student in an Organized Health Care Education/Training Program; ADMIT Student in an Organized Health Care Education/Training Program
DX: A41.51 Sepsis due to Escherichia coli [E. coli] (principal); G92.8 Other toxic encephalopathy; N39.0 Urinary tract infection, site not specified; K21.9 Gastro-esophageal reflux disease without esophagitis; F32.A Depression, unspecified; F41.9 Anxiety disorder, unspecified; I10 Essential (primary) hypertension; F17.210 Nicotine dependence, cigarettes, uncomplicated; F10.10 Alcohol abuse, uncomplicated; I48.91 Unspecified atrial fibrillation; F01.50 Vascular dementia, unspecified severity, without behavioral disturbance, psychotic disturbance, mood disturbance, and anxiety; I48.0 Paroxysmal atrial fibrillation; N40.0 Benign prostatic hyperplasia without lower urinary tract symptoms; E87.6 Hypokalemia; I69.320 Aphasia following cerebral infarction; Z88.0 Allergy status to penicillin
CPT/HCPCS: 36415; 51798; 71045; 74177; 80048; 80053; 81001; 83605; 83735; 84484; 85025; 85027; 87077; 87086; 87186; 87428-QW; 96361; 96365; 96367; 96375; 96376; 99285-25; A9270; G0378; J0696; J2185; J2470; J3480; J7030; J7050; Q9967